=== PATIENT | male | born 1975 | race Hispanic/Latino ===

== ENCOUNTER 2019-04-02 12:11 | Inpatient (IN) | payer OTHER, SELFPAY ==
--- NOTE | ~2019-04-02 | CT_ITS ---
EXAMINATION: CT abdomen pelvis w con DATE: 04/06/2019 08:24 INDICATION: Diverticulitis with abscess. TECHNIQUE: Computed tomography (CT) of the abdomen and pelvis was performed with 100 mL Omnipaque 350 intravenous contrast. Automated exposure control and iterative reconstruction technique were employe d. The dose-length product was 232.68 mGy-cm. COMPARISON: CT abdomen and pelvis 04/02/2019 FINDINGS: The visualized portions of the lung bases demonstrate mild atelectasis. No pleural effusion . The heart size is normal. No pericardial effusion. The liver and spleen are normal. The gallbladder is normal in size. Gallbladder wall thickening is noted, likely from interstitial edema. The pancrea s, adrenal glands, and kidneys are normal. There are scattered diverticula in the colon. There is wal l thickening of the rectosigmoid. There is a fistula from the sigmoid colon to the wall of the bladde r. There is a 2.9 x 2.7 x 2.5 cm abscess involving the bladder wall that previously measured 2.2 x 2. 6 x 2.4 cm. There is a 2.4 x 2.4 x 1.7 cm abscess posterior superior to the bladder that previously m easured 2.0 x 1.6 x 1.4 cm. The appendix is normal. There is trace ascites. There are no pathological ly enlarged lymph nodes. There are benign bone islands in the proximal femora. IMPRESSION: 1. Sigmoid diverticulitis with fistula and slightly worsened abscess involving the bladder wall and s lightly worsened abscess posterior superior to the bladder. Reviewed, dictated and finalized at location B. TICK MOLDER IMPRESSION: 1. Sigmoid diverticulitis with fistula and slightly worsened abscess involving the bladder wall and slightly worsened abscess posterior superior to the bladde r.
--- NOTE | ~2019-04-02 | CT_ITS ---
EXAMINATION: CT abdomen pelvis w con DATE: 04/02/2019 14:14 INDICATION: Low abdominal pain. Diverticulitis. TECHNIQUE: Computed tomography (CT) of the abdomen and pelvis was performed with 100 mL Omnipaque 350 intravenous contrast. Automated exposure control and iterative reconstruction technique were employe d. The dose-length product was 217.04 mGy-cm. COMPARISON: CT abdomen and pelvis 02/16/2019 FINDINGS: The visualized portions of the lung bases demonstrate minimal atelectasis. No pleural effus ion. The heart size is normal. No pericardial effusion. The liver, gallbladder, spleen, pancreas, adr enal glands, and kidneys are normal. There are scattered diverticula in the colon. There is wall thic kening of the sigmoid colon. There is a fistula to the bladder wall, which is thickened, with a 2.2 x 2.6 x 2.4 cm abscess. There is a 2.0 x 1.6 x 1.4 cm abscess posterior to the bladder. There are no d ilated loops of bowel. The appendix is normal. There are no pathologically enlarged lymph nodes. Ther e is no free intraperitoneal fluid. There is mild lumbar spondylosis. IMPRESSION: 1. Sigmoid diverticulitis with fistula and abscess involving the bladder wall and small abscess poste rior to the bladder. Reviewed, dictated and finalized at location A. [employer] IMPRESSION: 1. Sigmoid diverticulitis with fistula and abscess involving the bladder wall a nd small abscess posterior to the bladder.
[2019-04-02 12:35] VITALS: BP 119/78; PULSE 73; RESP 16; TEMP 37; O2SAT 100
--- NOTE | 2019-04-02 13:11 | ED.GENADULT ---
HPI - General Adult General Chief complaint: Unspecified Stated complaint: ABD PAIN Time Seen by Provider: 04/02/19 13:07 Source: patient Mode of arrival: ambulatory Limitations: no limitations History of Present Illness HPI narrative: A 43 y/o male, with a hx of diverticulitis, presents to the ED with worsening lower ABD pain for the past 4 days. He states that he is scheduled to have a partial colon resection done by Dr. Hirsch on April 09. He reports associated dysuria, nausea, 1 episode of diarrhea, and that the pain radiates into his lower back. He notes that he had labs done 2 days ago and was contacted and told that he had an infection so he should come into the ED. He denies any blood in his stool, vomiting, fevers, chills, CP, or SOB. MD complaint: Lower ABD pain Onset (ago): day(s) (4) Location: abdomen (lower) Radiation: back (lower) Associated symptoms: nausea/vomiting (no vomiting) and other (dysuria and 1 episode of diarrhea) Related Data Home Medications Medication Instructions Recorded Confirmed clonazepam 1 mg tablet 1 mg PO BID 02/16/19 03/30/19 Allergies Allergy/AdvReac Type Severity Reaction Status Date / Time No Known Allergies Allergy Verified 04/02/19 12:43 Review of Systems Review of Systems: All systems reviewed & are unremarkable except as noted in HPI and below Constitutional: Constitutional: Denies chills and Denies fever(s) Cardiovascular: Cardiovascular: Denies chest pain Respiratory: Respiratory: Denies dyspnea Gastrointestinal: Gastrointestinal: Reports abdominal pain (lower), Denies melena, Reports diarrhea (1 episode), Reports nausea and Denies vomiting Genitourinary: Genitourinary: Reports dysuria [facility] Past Medical History Medical History (Updated 04/02/19 @ 17:16 by Melissa Samano MD) Depression Diverticulitis Surgical History Surgical History H/O colonoscopy 08/25/[address] Raines showing diverticulosis with no evidence of bleeding and grade II internal hemorrhoids. Family History Family History Other Tuberculosis Other Acute myocardial infarction Diabetes mellitus Social History Social History Social History: The patient lives at home with his and four children. He normally works for a [employer], but has recently been off work due to the recurrent episodes of diverticulitis. He has not worked for at least the past month. He has a history of smoking daily but reportedly quit about 2 days ago. Denies any alcohol or drug use. Alcohol intake: never Substance use: never Living arrangements: with family Occupation/Education: occupation Gender identity (if verbalized by the patient): Male Exam Const: General: cooperative, no acute distress and alert Nutritional Appearance: well nourished Orientation/consciousness: oriented x3 Limitations: no limitations HENMT: Mouth: Yes lip normal and Yes moist mucous membranes Resp: Effort & Inspection: normal respiratory effort Auscultation: clear to auscultation bilaterally Cardio: Rate: regular rate Rhythm: regular rhythm GI: GI Palp: Yes abdominal tenderness (diffuse lower - greatest in the RLQ) and Yes soft Auscultation: normal bowel sounds Skin: General skin exam: normal color Neuro: General: oriented x3 Cognition (Neuro): normal cognition Speech: normal speech Extrem: General: normal to inspection, full ROM and no clubbing, cyanosis or edema Psych: Mental Status: mental status grossly normal Affect: normal affect Attitude: cooperative Course Course Emergency Course: Patient with complicated history of recurrent diverticulitis who is scheduled for a partial colon resection. Now here again with recurrent diverticulitis and abscess involving the bladder now. Case discussed with general surgery who
[2019-04-02 13:41] LABS: Basophils Absolute Auto 0.1 K/mm3 (0.0-0.1); Basophils Percent Auto 0.4 % (0.2-1.2); Eosinophils Absolute Auto 0.3 K/mm3 (0-0.3); Eosinophils Percent Auto 1.9 % (0-4.4); Hematocrit 42.2 % (42.0-52.0); Hemoglobin 14.5 g/dL (14.0-18.0); Immature Granulocyte Absolute 0.08 K/mm3 (0.00-0.031); Immature Granulocyte Percent A 0.5 % (0-0.5); Lymphocytes Absolute Auto 2.31 K/mm3 (0.9-3.2); Lymphocytes Percent Auto 14.8 % (18.3-44.2); Mean Corpuscular HGB Conc 34.4 g/dl (32-36); Mean Corpuscular Hemoglobin 32.2 pg (26-34); Mean Corpuscular Volume 93.6 fl (80-100); Mean Platelet Volume 10.6 fl (7.4-10.4); Monocytes Absolute Auto 1.8 K/mm3 (0.1-0.6); Monocytes Percent Auto 11.6 % (2.6-8.5); Neutrophils Absolute Auto 11.1 K/mm3 (1.3-6.7); Neutrophils Percent Auto 70.8 % (45.5-73.1); Platelet Count Result 303 k/mm3 (150-375); Red Blood Count 4.51 M/mm3 (4.6-6.20); Red Cell Distribution Width 11.9 % (11.5-14.5); White Blood Count 15.6 K/mm3 (4.5-10.0)
[2019-04-02] MEDS: LACTATED RINGERS 1,000 ML 999 ML IV CONT (13:42)
[2019-04-02 13:49] LABS: Add Urine Microscopic? YES; Appearance Urine Clear (Clear); Bilirubin Urine Negative (Negative); Blood Urine Negative (Negative); Color Urine Straw (Yellow); Glucose Urine UA Negative (Negative); Ketones Urine Negative (Negative); Leukocyte Esterase Ur Negative LEU/UL (Negative); Mucus Urine Rare /lpf; Nitrate Urine Negative (Negative); Protein Urine Negative (Negative); Urobilinogen Urine Negative mg/dL (<2.0)
[2019-04-02 13:58] LABS: Alanine Aminotransferase 21 U/L (4-50); Albumin Level 4.6 g/dL (3.5-5.1); Alkaline Phosphatase 73 U/L (38-126); Aspartate Amino Transferase 14 U/L (17-59); Bilirubin,Total 1.2 mg/dL (0.2-1.3); Blood Urea Nitrogen 8 mg/dL (9-20); Calcium 9.4 mg/dL (8.4-10.2); Carbon Dioxide 30 mmol/L (22-30); Chloride 98 mmol/L (98-107); Estimated CRCL calculation 92 ml/min; Estimated Glomerular Filt Rate > 60; Glucose 89 mg/dL (75-110); Lipase 59 U/L (23-300); Potassium 4.3 mmol/L (3.4-5.0); Sodium 139 mmol/L (137-145)
[2019-04-02 14:08] LABS: RBC Urine 51-75 /hpf (0-2)
[2019-04-02 14:10] LABS: Specific Grav Ur 1.005 (1.001-1.035)
[2019-04-02 16:03] VITALS: BP 94/65; PULSE 58; RESP 16; O2SAT 99
--- NOTE | 2019-04-02 16:10 | PM.IMHP ---
H&P: HPI History of Present Illness Chief complaint: diverticular abscess Narrative: Phong Neff is a 43 year old male with a history of multiple episodes of diverticulitis. He is well known to our service for treating him for this on multiple occasions. The patient has had about 6-7 episodes of diverticulitis in the past year, with at least 2 requiring IV antibiotic treatment and hospitalization. The patient has been followed as an outpatient to schedule for a sigmoidectomy. He last had a colonoscopy on 08/25/2018 that showed evidence of diverticulosis without bleeding and internal hemorrhoids. The patient was last treated with 1 week of oral antibiotics as an outpatient for mild sigmoid diverticulitis on 02/16/2019. He then improved and had no problems until this past week. He reports that his abdominal pain started about 5 days ago. It was all lower abdominal pain that was also associated with dysuria. The patient was also scheduled for surgery on April 09, 2018 for elective sigmoid colectomy. He notified our office of the abdominal pain on 03/31/2019 and was sent for labs. His labs revealed white blood cell count of 15,400. he was called with these results and decided to present to the ED for further evaluation today due to his persistent abdominal pain. CT scan of the abdomen and pelvis in the emergency department revealed sigmoid diverticulitis with a 2.2 x 2.6 x 2.4 cm pericolonic abscess near the bladder with bladder wall thickening and suggestion of a colovesical fistula. There is anther 2.0 x 1.6 x 1.4 cm abscess posterior to the bladder. No free intraperitoneal air noted. Labs revealed [place] [id number]. Urinalysis showed WBC 4-6, negative leukocytes, negative nitrates, rare mucous, no mention of bacteria, and many RBC. Our service was contacted for the CT scan findings of sigmoid diverticulitis with pericolonic abscesses and possible colovesical fistula. The patient is now being seen in the emergency department. He reports he is still having some lower abdominal pain that is primarily suprapubic and left lower quadrant abdominal pain. He states recently he began to notice dysuria, but denies hematuria, pneumaturia, urgency, or frequency. He reports a subjective fever 2 times in the last 5 days. He stopped eating about 3 days ago but has been drinking large quantities of fluid. His bowels have been moving normally with his last bowel movement yesterday, but it was somewhat loose. No blood noted in his stool. Also reports associated fatigue over the past week. No other complaints at this time. Review of Systems Review of Systems: All systems reviewed & are unremarkable except as noted in HPI and below Constitutional: Constitutional: Reports as per HPI, Reports chills, Denies excessive sweating, Reports fatigue, Reports fever(s), Denies headache(s) and Denies weakness Eyes: Eyes: Denies change in vision and Denies eye pain ENT: Denies dysphagia, Denies dizziness, Denies dry mouth, Denies headache(s), Denies hearing loss and Denies mouth pain Cardiovascular: Cardiovascular: Denies chest pain, Denies pedal edema, Denies radiating jaw, neck or arm pain, Denies dyspnea and Denies dyspnea on exertion Respiratory: Respiratory: Denies cough, Denies dyspnea, Denies dyspnea on exertion and Denies wheezing Gastrointestinal: Gastrointestinal: Reports as per HPI, Reports no additional gastrointestinal complaints, Reports abdominal pain, Denies melena, Denies bloating, Denies hematochezia, Denies constipation, Denies dysphagia, Reports loose stools, Denies nausea and Denies vomiting Genitourinary: Genitourinary: Reports as per HPI, Denies hematuria, Reports dysuria and Denies urinary urgency Musculoskeletal: Musculoskeletal: Denies abnormal gait, Denies deformity, Denies joint swelling, Denies numbness and Denies tingling Integumentary/Breasts: Skin/Breast: Denies new lesions, Denies rash, Denies wounds and D
[2019-04-02 16:55] VITALS: BP 103/51; PULSE 53; RESP 16; TEMP 37; O2SAT 100; BMI 20.6
[2019-04-02] MEDS: IBUPROFEN IV 800 MG/200 ML 800 MG/200 ML BAG 400 MG IVPB ×2 (17:07→23:42)
[2019-04-02] MEDS: LACTATED RINGERS 1,000 ML 125 ML IV CONT (18:01)
--- NOTE | 2019-04-02 18:37 | ADMGEN ---
This patient, Phong Neff, was admitted to 2 Medical Room 242-01. Patient oriented to hospital policies and general routines including ID bracelet, bed and alarms, visiting hours, pain management, procedures, bathroom and other care routines, personal items, smoking policy, room service/diet, and visiting hours. Valuables list has been completed. Information on how to activate the Rapid Response Team has been discussed. Patient are encouraged to report perceived risks to care and to ask questions if they do not understand what they are told or what they should do.
--- NOTE | 2019-04-02 19:56 | PM.PNGS ---
Progress Note: A&P Assessment and Plan (1) Diverticulitis of large intestine with abscess: Code(s): K57.20 - Diverticulitis of large intestine with perforation and abscess without bleeding Status: Acute Assessment and Plan: Admit patient and start IV antibiotics, bowel rest analgesics and IV fluids. Hopefully this will resolve without surgery in the acute situation. Although CT scan does show evidence of a colovesical fistula, urinalysis is not really indicative of this. Will watch for signs of pneumaturia or fecaluria. Elective surgery will have to be rescheduled. Subjective Subjective Date/Time Seen: 04/02/19 19:56 Interval history: Patient is a 43-year-old man who has had previous episodes of acute diverticulitis. His diverticulitis has been quiescent and he is planned to have surgery in 1 week. However he was noted on preoperative lab [place] [id number]. He also has been having lower abdominal pain suggestive of recurrence of diverticulitis. He came to the emergency room and CT scan shows diverticulitis with probable colovesical fistula and a be an abscess posterior to the bladder. He has been admitted for IV antibiotics and further management. Review of Systems Review of Systems: All systems reviewed & are unremarkable except as noted in HPI and below Exam Const: General: comfortable and no acute distress; No confused Orientation/consciousness: oriented x3 and No confused Resp: Effort & Inspection: normal respiratory effort Auscultation: clear to auscultation bilaterally Cardio: Rate: regular rate Rhythm: regular rhythm GI: Inspection: normal to inspection and non-distended GI Palp: Yes firm, Yes tender (Across entire lower abdomen), Yes guarding (Both lower quadrant) and Yes rebound tenderness Auscultation: hypoactive bowel sounds Neuro: General: oriented x3, no focal motor deficits and No confused Extrem: General: no calf tenderness and no edema Psych: Affect: normal affect Insight: insight good Judgement: judgment good Objective Data Vital Signs Vital Signs: Vital Signs - 24 hr 04/02/19 12:35 04/02/19 16:03 04/02/19 16:55 Temperature 37.0 C 37.0 C Pulse Rate 73 58 L 53 L Respiratory Rate 16 16 16 Blood Pressure 119/78 94/65 L 103/51 L Pulse Oximetry 100 99 100 Intake/Output Intake/Output: Intake & Output 03/30/19 03/31/19 04/01/19 04/02/19 23:59 23:59 23:59 23:59 Intake Total 1350 Output Total 0 Balance 1350 Meds/Results Medications: Active Medications Generic Name Dose Route Start Last Admin Trade Name Freq PRN Reason Stop Dose Admin Acetaminophen 1,000 mg in 100 mls @ 400 mls/hr 04/02/19 15:49 Ofirmev 1,000 Mg Ivpb IVPB 04/03/19 15:50 Q6H PRN Mild Pain (1-3) or Fever Lactated Ringer's 1,000 mls @ 125 mls/hr 04/02/19 15:50 04/02/19 18:01 Lr - Lactated Ringers Iv IV CONT 125 mls/hr .Q8H KENDRA Administration Piperacillin/Tazobactam/Dextrose 3.375 gm in 50 mls @ 100 mls/hr 04/03/19 00:00 Zosyn 3.375 Gm/D5w 50ml Pm IVPB Q6HR KENDRA Ibuprofen 800 mg in 200 mls @ 400 mls/hr 04/02/19 18:00 04/02/19 18:02 Caldolor 800 Mg/200 Ml IVPB Infused Q6HR KENDRA Infusion Morphine Sulfate 2 mg 04/02/19 16:43 Morphine Sulfate Inj IV PUSH Q2H PRN Pain Rated 4-6 Morphine Sulfate 4 mg 04/02/19 16:43 Morphine Sulfate Inj IV PUSH Q2H PRN Pain Rated 7-10 Radiology Results: ITS Impressions Abdomen/Pelvis CT 04/02/19 14:15 IMPRESSION: 1. Sigmoid diverticulitis with fistula and abscess involving the bladder wall and small abscess posterior to the bladder. Labs Labs: Laboratory Results - last 24 hr 04/02/19 04/02/19 04/02/19 13:36 13:36 13:36 WBC 15.6 H RBC 4.51 L Hgb 14.5 Hct 42.2 MCV 93.6 MCH 32.2 MCHC 34.4 RDW 11.9 Plt Count 303 MPV 10.6 H Immature Gran % (Auto) 0.5 Neut % (Auto) 70.8 Lymph %
[2019-04-02] MEDS: MORPHINE SULFATE 2 MG/ML INJ IV PUSH (20:46)
[2019-04-02 22:00] VITALS: BP 110/57; PULSE 56; RESP 21; TEMP 36.7; O2SAT 100
[2019-04-03] MEDS: LACTATED RINGERS 1,000 ML 125 ML IV CONT (03:12)
[2019-04-03] MEDS: MORPHINE SULFATE 2 MG/ML INJ IV PUSH ×2 (03:17→15:19)
[2019-04-03 06:00] VITALS: BP 107/58; PULSE 77; RESP 21; TEMP 36.3; O2SAT 100
--- NOTE | 2019-04-03 06:05 | PM.PNGS ---
Progress Note: A&P Assessment and Plan (1) Diverticulitis of large intestine with abscess: Code(s): K57.20 - Diverticulitis of large intestine with perforation and abscess without bleeding Status: Acute Assessment and Plan: Some improvement after just a few hours of IV antibiotics and bowel rest. Continue present treatment. Recheck exam and labs again tomorrow. Labs from today are pending at this time. Subjective Subjective Date/Time Seen: 04/03/19 06:05 Patient reports: no new complaints and pain is less Review of Systems Review of Systems: All systems reviewed & are unremarkable except as noted in HPI and below Constitutional: Constitutional: Denies headache(s) ENT: Denies headache(s) Cardiovascular: Cardiovascular: Denies chest pain and Denies dyspnea Respiratory: Respiratory: Denies cough and Denies dyspnea Gastrointestinal: Gastrointestinal: Reports as per HPI and Reports abdominal pain Comments: Difficult to tell if patient has any pneumaturia. There is a language barrier. Neurologic: Denies confusion and Denies headache(s) Psychiatric: Psychiatric: Denies confusion Exam Const: General: comfortable and no acute distress; No confused Orientation/consciousness: oriented x3 and No confused Resp: Effort & Inspection: normal respiratory effort Auscultation: clear to auscultation bilaterally Cardio: Rate: regular rate Rhythm: regular rhythm GI: Inspection: normal to inspection and non-distended GI Palp: Yes soft, Yes tender ( Both lower quadrants.), Yes guarding, No hernia, No mass and Yes rebound tenderness Auscultation: normal bowel sounds Neuro: General: oriented x3, no focal motor deficits and No confused Extrem: General: no calf tenderness and no edema Psych: Affect: normal affect Insight: insight good Judgement: judgment good Objective Data Vital Signs Vital Signs: Vital Signs - 24 hr 04/02/19 12:35 04/02/19 16:03 04/02/19 16:55 Temperature 37.0 C 37.0 C Pulse Rate 73 58 L 53 L Respiratory Rate 16 16 16 Blood Pressure 119/78 94/65 L 103/51 L Pulse Oximetry 100 99 100 04/02/19 22:00 Temperature 36.7 C Pulse Rate 56 L Respiratory Rate 21 H Blood Pressure 110/57 L Pulse Oximetry 100 Intake/Output Intake/Output: Intake & Output 03/31/19 04/01/19 04/02/19 04/03/19 23:59 23:59 23:59 23:59 Intake Total 1350 1250 Output Total 0 Balance 1350 1250 Meds/Results Medications: Active Medications Generic Name Dose Route Start Last Admin Trade Name Freq PRN Reason Stop Dose Admin Acetaminophen 1,000 mg in 100 mls @ 400 mls/hr 04/02/19 15:49 Ofirmev 1,000 Mg Ivpb IVPB 04/03/19 15:50 Q6H PRN Mild Pain (1-3) or Fever Lactated Ringer's 1,000 mls @ 125 mls/hr 04/02/19 15:50 04/03/19 03:12 Lr - Lactated Ringers Iv IV CONT 125 mls/hr .Q8H KENDRA Administration Piperacillin/Tazobactam/Dextrose 3.375 gm in 50 mls @ 100 mls/hr 04/03/19 00:00 04/03/19 01:51 Zosyn 3.375 Gm/D5w 50ml Pm IVPB Infused Q6HR KENDRA Infusion Ibuprofen 800 mg in 200 mls @ 400 mls/hr 04/02/19 18:00 04/03/19 01:48 Caldolor 800 Mg/200 Ml IVPB Infused Q6HR KENDRA Infusion Morphine Sulfate 2 mg 04/02/19 16:43 04/03/19 03:17 Morphine Sulfate Inj IV PUSH 2 mg Q2H PRN Administration Pain Rated 4-6 Morphine Sulfate 4 mg 04/02/19 16:43 Morphine Sulfate Inj IV PUSH Q2H PRN Pain Rated 7-10 Radiology Results: ITS Impressions Abdomen/Pelvis CT 04/02/19 14:15 IMPRESSION: 1. Sigmoid diverticulitis with fistula and abscess involving the bladder wall and small abscess posterior to the bladder. Labs Labs: Laboratory Results - last 24 hr 04/02/19 04/02/19 04/02/19 13:36 13:36 13:36 WBC 15.6 H RBC 4.51 L Hgb 14.5 Hct 42.2 MCV 93.6 MCH 32.2 MCHC 34.4 RDW 11.9 Plt Count 303 MPV 10.6 H Immature Gran % (Auto) 0.5 Neut % (Auto) 70.8 Lymph % (Auto) 14.8 L
[2019-04-03] MEDS: IBUPROFEN IV 800 MG/200 ML 800 MG/200 ML BAG 400 MG IVPB (06:23)
[2019-04-03] MEDS: ENOXAPARIN 40 MG/0.4 ML SYRINGE SUB-Q (08:39)
[2019-04-03] MEDS: IBUPROFEN IV 800 MG/200 ML 800 MG/200 ML BAG 200 MG IVPB ×2 (11:48→17:48)
[2019-04-03] MEDS: LACTATED RINGERS 1,000 ML 100 ML IV CONT ×2 (11:49→21:59)
[2019-04-03 14:00] VITALS: BP 101/52; PULSE 54; RESP 15; TEMP 37.1; O2SAT 98
[2019-04-03 22:00] VITALS: BP 106/53; PULSE 63; RESP 18; TEMP 36.4; O2SAT 99
[2019-04-04] MEDS: IBUPROFEN IV 800 MG/200 ML 800 MG/200 ML BAG 200 MG IVPB ×5 (00:14→23:49)
[2019-04-04] MEDS: MORPHINE SULFATE 2 MG/ML INJ IV PUSH (00:24)
[2019-04-04 05:40] LABS: Hematocrit 35.5 % (42.0-52.0); Hemoglobin 12.2 g/dL (14.0-18.0); Mean Corpuscular HGB Conc 34.4 g/dl (32-36); Mean Corpuscular Hemoglobin 32.4 pg (26-34); Mean Corpuscular Volume 94.2 fl (80-100); Mean Platelet Volume 11.1 fl (7.4-10.4); Platelet Count Result 285 k/mm3 (150-375); Red Blood Count 3.77 M/mm3 (4.6-6.20); Red Cell Distribution Width 11.5 % (11.5-14.5)
[2019-04-04 05:52] LABS: Blood Urea Nitrogen 10 mg/dL (9-20); Calcium 8.5 mg/dL (8.4-10.2); Carbon Dioxide 26 mmol/L (22-30); Chloride 99 mmol/L (98-107); Estimated CRCL calculation 104 ml/min; Estimated Glomerular Filt Rate > 60; Glucose 78 mg/dL (75-110); Potassium 3.6 mmol/L (3.4-5.0); Sodium 137 mmol/L (137-145)
[2019-04-04 06:00] VITALS: BP 111/62; PULSE 60; RESP 16; TEMP 36.3; O2SAT 98
[2019-04-04] MEDS: ENOXAPARIN 40 MG/0.4 ML SYRINGE SUB-Q (08:32)
[2019-04-04] MEDS: LACTATED RINGERS 1,000 ML 100 ML IV CONT (12:04)
[2019-04-04 14:00] VITALS: BP 98/54; PULSE 68; RESP 14; TEMP 36.4; O2SAT 100
--- NOTE | 2019-04-04 19:19 | PM.PNGS ---
Progress Note: A&P Assessment and Plan (1) Diverticulitis of large intestine with abscess: Qualifiers: Diverticulitis bleeding: without bleeding Qualified Code(s): K57.20 - Diverticulitis of large intestine with perforation and abscess without bleeding Code(s): K57.20 - Diverticulitis of large intestine with perforation and abscess without bleeding Status: Acute Assessment and Plan: white count slightly up today. Will repeat in a.m. tomorrow. Electrolytes normal. Patient seems to be improving. Will increase diet to clear liquids and see how he tolerates it. Continue IV antibiotics. Subjective Subjective Date/Time Seen: 04/04/19 13:19 patient states that he is feeling better. Does not have as much lower abdominal pain as when he came back to the hospital. States he has had several loose stools the last 24 hours. States he is not hungry but would be willing to drink. Nurse reports he has not been letting them know when he has stools if he has had them. Review of Systems Constitutional: Constitutional: Reports no additional constitutional complaints ENT: Reports other (Mucous Membranes moist.) Cardiovascular: Cardiovascular: Denies dyspnea Respiratory: Respiratory: Denies pain on inspiration and Denies dyspnea Gastrointestinal: Gastrointestinal: Reports as per HPI and Reports abdominal pain ( Mild in the suprapubic area and left lower quadrant.) Musculoskeletal: Musculoskeletal: Reports other (No calf swelling or edema) Integumentary/Breasts: Skin/Breast: Reports system reviewed and no additional complaints, except as docu Exam Const: General: comfortable and no acute distress; No confused Orientation/consciousness: oriented x3 and No confused Resp: Effort & Inspection: normal respiratory effort Auscultation: clear to auscultation bilaterally Cardio: Rate: regular rate Rhythm: regular rhythm GI: Inspection: normal to inspection and non-distended GI Palp: Yes soft, Yes tender ( Mild in suprapubic area and left lower quadrant.), No hernia and No mass Auscultation: normal bowel sounds Neuro: General: oriented x3, no focal motor deficits and No confused Extrem: General: no calf tenderness and no edema Psych: Affect: normal affect Insight: insight good Judgement: judgment good Objective Data Vital Signs Vital Signs: Vital Signs - 24 hr 04/03/19 22:00 04/04/19 06:00 04/04/19 14:00 Temperature 36.4 C L 36.3 C L 36.4 C Pulse Rate 63 60 68 Respiratory Rate 18 16 14 Blood Pressure 106/53 L 111/62 98/54 L Pulse Oximetry 99 98 100 Intake/Output Intake/Output: Intake & Output 04/01/19 04/02/19 04/03/19 04/04/19 23:59 23:59 23:59 23:59 Intake Total 1350 4000 2850 Output Total 0 4 700 Balance 1350 3996 2150 Meds/Results Medications: Active Medications Generic Name Dose Route Start Last Admin Trade Name Freq PRN Reason Stop Dose Admin Hydrocodone Bitart/Acetaminophen 1 tab 04/04/19 19:17 [place] 5-325 Mg PO Q6H PRN Pain Rated 4-6 Enoxaparin Sodium 40 mg 04/03/19 09:00 04/04/19 08:32 Lovenox SUB-Q 40 mg DAILY KENDRA Administration Lactated Ringer's 1,000 mls @ 100 mls/hr 04/02/19 15:50 04/04/19 17:52 Lr - Lactated Ringers Iv IV CONT 100 mls/hr .Q10H KENDRA Infusion Piperacillin/Tazobactam/Dextrose 3.375 gm in 50 mls @ 100 mls/hr 04/03/19 00:00 04/04/19 18:27 Zosyn 3.375 Gm/D5w 50ml Pm IVPB Infused Q6HR KENDRA Infusion Ibuprofen 800 mg in 200 mls @ 400 mls/hr 04/02/19 18:00 04/04/19 18:29 Caldolor 800 Mg/200 Ml IVPB 200 mls/hr Q6HR KENDRA Administration Morphine Sulfate 2 mg 04/02/19 16:43 04/04/19 00:24 Morphine Sulfate Inj IV PUSH 2 mg Q2H PRN Administration Pain Rated 4-6 Morphine Sulfate 4 mg 04/02/19 16:43 Morphine Sulfate Inj IV PUSH Q2H PRN Pain Rated 7-10 Radiology Results: ITS Impressions Abdomen/Pelvis CT 04/02/19 14:15 IMPRESSION: 1. Sigmoid
[2019-04-04 22:00] VITALS: BP 110/56; PULSE 64; RESP 18; TEMP 36.6; O2SAT 99
[2019-04-05] MEDS: LACTATED RINGERS 1,000 ML 100 ML IV CONT ×2 (00:30→12:30)
[2019-04-05] MEDS: IBUPROFEN IV 800 MG/200 ML 800 MG/200 ML BAG 200 MG IVPB ×3 (05:16→17:08)
[2019-04-05 06:00] VITALS: BP 117/67; PULSE 53; RESP 18; TEMP 36.3; O2SAT 97
[2019-04-05 06:02] LABS: Basophils Absolute Auto 0.1 K/mm3 (0.0-0.1); Basophils Percent Auto 0.4 % (0.2-1.2); Eosinophils Absolute Auto 0.4 K/mm3 (0-0.3); Eosinophils Percent Auto 3.1 % (0-4.4); Hematocrit 32.1 % (42.0-52.0); Hemoglobin 11.1 g/dL (14.0-18.0); Immature Granulocyte Absolute 0.08 K/mm3 (0.00-0.031); Immature Granulocyte Percent A 0.6 % (0-0.5); Lymphocytes Absolute Auto 2.61 K/mm3 (0.9-3.2); Lymphocytes Percent Auto 19.3 % (18.3-44.2); Mean Corpuscular HGB Conc 34.6 g/dl (32-36); Mean Corpuscular Hemoglobin 32.3 pg (26-34); Mean Corpuscular Volume 93.3 fl (80-100); Monocytes Percent Auto 14.5 % (2.6-8.5); Neutrophils Absolute Auto 8.4 K/mm3 (1.3-6.7); Neutrophils Percent Auto 62.1 % (45.5-73.1); Platelet Count Result 279 k/mm3 (150-375); Red Blood Count 3.44 M/mm3 (4.6-6.20); Red Cell Distribution Width 11.7 % (11.5-14.5); White Blood Count 13.5 K/mm3 (4.5-10.0)
[2019-04-05] MEDS: ENOXAPARIN 40 MG/0.4 ML SYRINGE SUB-Q (08:41)
[2019-04-05 14:00] VITALS: BP 97/55; PULSE 65; RESP 14; TEMP 37; O2SAT 100
--- NOTE | 2019-04-05 19:37 | PM.PNGS ---
Progress Note: A&P Assessment and Plan (1) Diverticulitis of large intestine with abscess: Onset Date: ~03/2019 Qualifiers: Diverticulitis bleeding: without bleeding Qualified Code(s): K57.20 - Diverticulitis of large intestine with perforation and abscess without bleeding Code(s): K57.20 - Diverticulitis of large intestine with perforation and abscess without bleeding Status: Acute Assessment and Plan: patient seems to be improving. At this time he is noticing no specific burning with urination. Continue antibiotics Advance diet to fulls. Since patient thought perhaps Dr. Hirsch would want to do a CT scan again on Saturday he will hold off on eating breakfast very early. Patient and Dr. Hirsch to make further plans the morning paste on his progress. Subjective Subjective Date/Time Seen: 04/05/19 16:37 Patient lying in bed. States his pain is almost gone. Nurse reports she only gave him 1 pain pill today. He states he has had several loose stools today. Tolerating clear liquids well. Review of Systems Constitutional: Constitutional: Reports no additional constitutional complaints ENT: Reports other (Mucous Membranes moist.) Cardiovascular: Cardiovascular: Denies dyspnea Respiratory: Respiratory: Denies pain on inspiration and Denies dyspnea Gastrointestinal: Gastrointestinal: Reports as per HPI and Reports abdominal pain ( Mild in the suprapubic area and left lower quadrant.) Musculoskeletal: Musculoskeletal: Reports other (No calf swelling or edema) Integumentary/Breasts: Skin/Breast: Reports system reviewed and no additional complaints, except as docu Exam Const: General: comfortable and no acute distress; No confused Orientation/consciousness: oriented x3 and No confused Resp: Effort & Inspection: normal respiratory effort Auscultation: clear to auscultation bilaterally Cardio: Rate: regular rate Rhythm: regular rhythm GI: Inspection: normal to inspection and non-distended GI Palp: Yes soft, Yes tender ( Minimal with palpation in suprapubic area.), No hernia and No mass Auscultation: normal bowel sounds Neuro: General: oriented x3, no focal motor deficits and No confused Extrem: General: no calf tenderness and no edema Psych: Affect: normal affect Insight: insight good Judgement: judgment good Objective Data Vital Signs Vital Signs: Vital Signs - 24 hr 04/04/19 22:00 04/05/19 06:00 04/05/19 14:00 Temperature 36.6 C 36.3 C L 37.0 C Pulse Rate 64 53 L 65 Respiratory Rate 18 18 14 Blood Pressure 110/56 L 117/67 97/55 L Pulse Oximetry 99 97 100 Intake/Output Intake/Output: Intake & Output 04/02/19 04/03/19 04/04/19 04/05/19 23:59 23:59 23:59 23:59 Intake Total 1350 4000 3050 5027 Output Total 0 4 700 450 Balance 1350 3996 2350 4577 Meds/Results Medications: Active Medications Generic Name Dose Route Start Last Admin Trade Name Freq PRN Reason Stop Dose Admin Hydrocodone Bitart/Acetaminophen 1 tab 04/04/19 19:17 [place] 5-325 Mg PO Q6H PRN Pain Rated 4-6 Enoxaparin Sodium 40 mg 04/03/19 09:00 04/05/19 08:41 Lovenox SUB-Q 40 mg DAILY KENDRA Administration Lactated Ringer's 1,000 mls @ 50 mls/hr 04/02/19 15:50 04/05/19 12:30 Lr - Lactated Ringers Iv IV CONT 100 mls/hr .Q20H KENDRA Administration Piperacillin/Tazobactam/Dextrose 3.375 gm in 50 mls @ 100 mls/hr 04/03/19 00:00 04/05/19 19:06 Zosyn 3.375 Gm/D5w 50ml Pm IVPB Infused Q6HR KENDRA Infusion Ibuprofen 800 mg in 200 mls @ 400 mls/hr 04/02/19 18:00 04/05/19 19:06 Caldolor 800 Mg/200 Ml IVPB Infused Q6HR KENDRA Infusion Morphine Sulfate 4 mg 04/02/19 16:43 Morphine Sulfate Inj IV PUSH Q2H PRN Pain Rated 7-10 Radiology Results: ITS Impressions Abdomen/Pelvis CT 04/02/19 14:15 IMPRESSION: 1. Sigmoid diverticulitis with fistula and abscess involving the bladder wall and small abscess posterior to the bladder.
[2019-04-05 22:00] VITALS: BP 101/53; PULSE 55; RESP 14; TEMP 36.5; O2SAT 98
[2019-04-06] MEDS: LACTATED RINGERS 1,000 ML 50 ML IV CONT (00:21)
[2019-04-06] MEDS: IBUPROFEN IV 800 MG/200 ML 800 MG/200 ML BAG 200 MG IVPB ×3 (00:28→11:30)
[2019-04-06 06:00] VITALS: BP 111/63; PULSE 61; RESP 14; TEMP 36.3; O2SAT 98
[2019-04-06 06:39] LABS: Basophils Percent Auto 0.2 % (0.2-1.2); Eosinophils Absolute Auto 0.6 K/mm3 (0-0.3); Hematocrit 31.3 % (42.0-52.0); Hemoglobin 10.7 g/dL (14.0-18.0); Immature Granulocyte Absolute 0.06 K/mm3 (0.00-0.031); Immature Granulocyte Percent A 0.4 % (0-0.5); Lymphocytes Absolute Auto 2.69 K/mm3 (0.9-3.2); Lymphocytes Percent Auto 19.7 % (18.3-44.2); Mean Corpuscular HGB Conc 34.2 g/dl (32-36); Mean Corpuscular Hemoglobin 31.8 pg (26-34); Mean Corpuscular Volume 93.2 fl (80-100); Mean Platelet Volume 10.5 fl (7.4-10.4); Monocytes Absolute Auto 1.8 K/mm3 (0.1-0.6); Monocytes Percent Auto 13.3 % (2.6-8.5); Neutrophils Absolute Auto 8.5 K/mm3 (1.3-6.7); Neutrophils Percent Auto 62.4 % (45.5-73.1); Platelet Count Result 276 k/mm3 (150-375); Red Blood Count 3.36 M/mm3 (4.6-6.20); Red Cell Distribution Width 11.8 % (11.5-14.5); White Blood Count 13.7 K/mm3 (4.5-10.0)
--- NOTE | 2019-04-06 07:21 | PM.PNGS ---
Progress Note: A&P Assessment and Plan (1) Diverticulitis of large intestine with abscess: Onset Date: ~03/2019 Qualifiers: Diverticulitis bleeding: without bleeding Qualified Code(s): K57.20 - Diverticulitis of large intestine with perforation and abscess without bleeding Code(s): K57.20 - Diverticulitis of large intestine with perforation and abscess without bleeding Status: Acute Assessment and Plan: Definitely improving although white blood cell count is slow to decline. I will repeat his CT scan of the abdomen and pelvis this morning. If either abscess looks bigger, possibly percutaneous drainage may help. Continue IV antibiotics. Making progress. Subjective Subjective Date/Time Seen: 04/06/19 07:21 Patient reports: feels better and pain is less Review of Systems Review of Systems: All systems reviewed & are unremarkable except as noted in HPI and below Constitutional: Constitutional: Denies headache(s) ENT: Denies headache(s) Cardiovascular: Cardiovascular: Denies chest pain and Denies dyspnea Respiratory: Respiratory: Denies cough and Denies dyspnea Gastrointestinal: Gastrointestinal: Reports as per HPI Neurologic: Denies confusion and Denies headache(s) Psychiatric: Psychiatric: Denies confusion Exam Const: General: comfortable and no acute distress; No confused Orientation/consciousness: oriented x3 and No confused Resp: Effort & Inspection: normal respiratory effort Auscultation: clear to auscultation bilaterally Cardio: Rate: regular rate Rhythm: regular rhythm GI: Inspection: normal to inspection and non-distended GI Palp: Yes soft, Yes tender ( Both lower quadrants left greater than right. Much less than before.), No guarding, No hernia, No mass and No rebound tenderness Auscultation: normal bowel sounds Neuro: General: oriented x3, no focal motor deficits and No confused Extrem: General: no calf tenderness and no edema Psych: Affect: normal affect Insight: insight good Judgement: judgment good Objective Data Vital Signs Vital Signs: Vital Signs - 24 hr 04/05/19 14:00 04/05/19 22:00 04/06/19 06:00 Temperature 37.0 C 36.5 C 36.3 C L Pulse Rate 65 55 L 61 Respiratory Rate 14 14 14 Blood Pressure 97/55 L 101/53 L 111/63 Pulse Oximetry 100 98 98 Intake/Output Intake/Output: Intake & Output 04/03/19 04/04/19 04/05/1919 23:59 23:59 23:59 23:59 Intake Total 4000 3050 6027 350 Output Total 4 700 450 Balance 3996 2350 5577 350 Meds/Results Medications: Active Medications Generic Name Dose Route Start Last Admin Trade Name Freq PRN Reason Stop Dose Admin Hydrocodone Bitart/Acetaminophen 1 tab 04/04/19 19:17 [place] 5-325 Mg PO Q6H PRN Pain Rated 4-6 Enoxaparin Sodium 40 mg 04/03/19 09:00 04/05/19 08:41 Lovenox SUB-Q 40 mg DAILY KENDRA Administration Lactated Ringer's 1,000 mls @ 50 mls/hr 04/02/19 15:50 04/06/19 06:13 Lr - Lactated Ringers Iv IV CONT 50 mls/hr .Q20H KENDRA Infusion Piperacillin/Tazobactam/Dextrose 3.375 gm in 50 mls @ 100 mls/hr 04/03/19 00:00 04/06/19 06:13 Zosyn 3.375 Gm/D5w 50ml Pm IVPB 100 mls/hr Q6HR KENDRA Administration Ibuprofen 800 mg in 200 mls @ 400 mls/hr 04/02/19 18:00 04/06/19 05:41 Caldolor 800 Mg/200 Ml IVPB 200 mls/hr Q6HR KENDRA Administration Morphine Sulfate 4 mg 04/02/19 16:43 Morphine Sulfate Inj IV PUSH Q2H PRN Pain Rated 7-10 Radiology Results: ITS Impressions Abdomen/Pelvis CT 04/02/19 14:15 IMPRESSION: 1. Sigmoid diverticulitis with fistula and abscess involving the bladder wall and small abscess posterior to the bladder. Labs Labs: Laboratory Results - last 24 hr 04/06/19 06:27 WBC 13.7 H RBC 3.36 L Hgb 10.7 L Hct 31.3 L MCV 93.2 MCH 31.8 MCHC 34.2 RDW 11.8 Plt Count 276 MPV 10.5 H Immature Gran % (Auto) 0.4 Neut % (Auto) 62.4 Lymph % (Auto) 19.7 [place] %
[2019-04-06] MEDS: ENOXAPARIN 40 MG/0.4 ML SYRINGE SUB-Q (08:49)
[2019-04-06 14:00] VITALS: BP 119/70; PULSE 53; RESP 14; TEMP 36.4; O2SAT 100
[2019-04-06] MEDS: LACTATED RINGERS 1,000 ML 80 ML IV CONT (16:41)
[2019-04-06] MEDS: IBUPROFEN IV 800 MG/200 ML 800 MG/200 ML BAG 250 MG IVPB ×2 (17:29→23:16)
[2019-04-06 21:43] VITALS: BP 90/48; PULSE 55; RESP 18; TEMP 36.6; O2SAT 96
[2019-04-07] VITALS (13 sets, daily range): BP systolic 106–135; BP diastolic 51–79; PULSE 51–76; RESP 12–18; TEMP 36.2–36.8; O2SAT 98–100; BMI 20.6
[2019-04-07] MEDS: IBUPROFEN IV 800 MG/200 ML 800 MG/200 ML BAG 400 MG IVPB (05:49)
--- NOTE | 2019-04-07 06:31 | PC.NURSE ---
PT TO OR PER BED
--- NOTE | 2019-04-07 06:56 | WPDANESEPPF ---
Anes - Initial Pre Proc Eval Procedure: Operation Date: 04/07/19 07:30 Proposed Procedures p Open Sigmoidectomy, Possible Colostomy, Closure Colovesical Fistula - Mir Hirsch MD Date/Time: 04/07/19 06:56 Surgeon: Mir Hirsch MD Pre Op Diagnosis: diverticular abscess Patient Data Age: 43 Gender: M Height: 5 ft 8 in Weight: 61.6 kg Last Vital Signs Temp 36.4 C L 04/07/19 06:31 Pulse 51 L 04/07/19 06:31 Resp 18 04/07/19 06:31 BP 124/74 04/07/19 06:31 Pulse Ox 99 04/07/19 05:18 Allergies Allergy/AdvReac Type Severity Reaction Status Date / Time No Known Allergies Allergy Verified 04/02/19 12:43 Home Medications Medication Instructions Recorded Confirmed Type clonazepam 1 mg tablet 1 mg PO BID 02/16/19 03/30/19 History Laboratory Tests 04/06/19 04/06/19 14:54 14:54 Carcinoembryonic Ag 1.0 ng/mL ng/mL (0.0-3.0) Blood Type A Positive Antibody Screen Negative Patient hx anesthesia problems: none Family hx anesthesia problems: none PMFSH Past Medical History Medical History Depression Diverticulitis Surgical History Surgical History H/O colonoscopy 08/25/[address] Raines showing diverticulosis with no evidence of bleeding and grade II internal hemorrhoids. Family History Family History Other Tuberculosis Other Acute myocardial infarction Diabetes mellitus Social History Social History Social History: The patient lives at home with his and four children. He normally works for a [employer], but has recently been off work due to the recurrent episodes of diverticulitis. He has not worked for at least the past month. He has a history of smoking daily but reportedly quit about 2 days ago. Denies any alcohol or drug use. Years smoked: 19 Smoking status: Former smoker Smoking end date: 03/31/19 Alcohol intake: former Substance use: never Substance use type: does not use Living arrangements: with family Occupation/Education: occupation Gender identity (if verbalized by the patient): Male Spiritual care concerns: No Agree to blood products: Yes Anes - Eval Final PreProcedure Day of Procedure 04/07/19 06:56 Patient weight: normal Heart: regular rate and rhythm Lungs: decreased breath sounds Airway: Mallampati scale class III Neurological: alert and oriented Last oral intake: >/= 8 hours ASA classification: III Emergent: no Anesthetic plan: proceed Anesthesia type and monitoring: general ETT and standard monitoring Informed Consent: The patient's anesthetic plan and its attendant risks and benefits were discussed with the patient/family/POA. Questions were solicited and answers provided to the satisfaction of the patient/family/POA.
[2019-04-07] MEDS: LACTATED RINGERS 1,000 ML 30 ML IV CONT ×2 (07:20→10:19)
[2019-04-07] MEDS: ceFAZolin 2 GM/D5W 50 ML 2 GM/50 ML BAG IVPB ×2 (07:28)
--- NOTE | 2019-04-07 08:46 | SUR.OPER ---
Rectal washout was performed per Dr. Lee instructions.
--- NOTE | 2019-04-07 09:39 | SUR.OPER ---
Dr. Hirsch filled the bladder with 450cc of Normal Saline via Luer Lock syringe and wang catheter to make sure there was not a leak. The normal saline injected was then emptied out into wang bag.
--- NOTE | 2019-04-07 10:12 | PCWOUND ---
Received referral to [facility] both sides of abdomen for possible ostomy placement. Patient already in the OR when [facility] arrived to [facility]. Will follow after surgery for ostomy needs and education.
--- NOTE | 2019-04-07 10:40 | PM.PROC ---
Procedure Note - Detailed Date of procedure: 04/07/19 Pre-op diagnosis: diverticular abscess Acute diverticulitis with pelvic abscess and colovesical fistula Post-op diagnosis: other (Acute diverticulitis with pelvic abscess) Procedure performed: Sigmoid colon resection with colorectal anastomosis, drainage pelvic abscess. Description of procedure: The patient was taken to surgery and induced into general anesthesia. He was placed in lithotomy in Sergio stirrups. Rectal irrigation and rectal tube was placed. Tellez catheter was placed. Prep and drape was carried out. Lower abdominal midline incision was made and dissection was carried down through the midline fascia into the peritoneal cavity. The peritoneal opening was extended the length of the wound. The sigmoid inflammatory mass was stuck to the left anterior pelvic wall. It overlie the left side of the urinary bladder. I exposed this area, and then started some blunt dissection to free this portion of the sigmoid colon from the pelvic wall. I found 1 abscess that was more anterior. It had quite a bit of purulent fluid which I suctioned away. I continued the dissection going to the right side and posteriorly. I also took down some of the adhesions that were in the more proximal sigmoid. I found a 2nd abscess that was very close to the 1st but located more posterior. It was farther from the urinary bladder. Both these abscesses were drained and any loculations broken. Neither appeared to be draining any urine. They both were oozing and I went ahead and packed each with 1 in iodoform Nu Gauze. This provided some hemostasis while I continued the operation. I located the left ureter just above the pelvic brim. I mobilized the mid to distal descending colon from its lateral peritoneal attachments. This dissection was carried down to the pelvic inflammatory mass. I continued and mobilize the sigmoid colon and the associated inflammatory mass completely from the pelvic sidewall so that it was mobile on its mesentery and still in continuity with the rectum and descending colon. I looked again for any signs of fistula from the urinary bladder. None was seen. I then chose a spot in the distal descending colon for my proximal line of resection. The mesentery to this portion of the distal descending colon was divided with the Harmonic scalpel. I also found a similar location in the upper rectum for the distal line of resection. I scored the mesentery over the pelvic brim to this area of the rectal mesentery. I then divided the rectal mesentery up to the area of my anticipated distal resection. Superior rectal vessels were divided with the Harmonic scalpel. Other rectal and distal colonic vessels were likewise divided with the Harmonic scalpel. There was very minimal bleeding. Eventually the mesentery was freed. I then used a TLC 75 stapler and divided the distal descending colon. I reloaded the TLC 75 and divided the upper rectum. This allowed me to pass the specimen off to pathology labeled sigmoid colon with diverticulitis. I then inspected the pelvis and used the cautery to achieve good hemostasis. I mobilized a bit more of the descending colon. It lay without any significant tension in proximity to the upper rectum. I freed some fatty tissue from both the distal descending colon and the upper rectal lines of resection. Placing these 2 ends of bowel in proximity, I went ahead with a hand-sewn end-to-end 2 layer anastomosis. The posterior outer layer of interrupted 4 0 silk Lembert sutures were placed. I then removed each staple line using the cautery. The posterior inner layer of bidirectional running 4 0 chromic suture was then placed. Nanci sutures were used for the anterior inner layer. The chromic suture was then tied to itself. I completed the anastomosis with an anterior outer layer of interrupted 4 0 silk Lembert sutures. I checked the anastomosis and it appeared to
--- NOTE | 2019-04-07 11:45 | PC.NURSE ---
Returned from OR per bed. IV intact.
[2019-04-07] MEDS: MORPHINE SULFATE 2 MG/ML INJ IV PUSH ×2 (11:56→15:46)
[2019-04-07] MEDS: ENOXAPARIN 40 MG/0.4 ML SYRINGE SUB-Q (12:04)
[2019-04-07] MEDS: LACTATED RINGERS 1,000 ML 100 ML IV CONT ×2 (12:05→15:46)
[2019-04-07] MEDS: IBUPROFEN IV 800 MG/200 ML 800 MG/200 ML BAG 200 MG IVPB ×3 (12:46→23:33)
--- NOTE | 2019-04-07 13:32 | PCDIET ---
Nutrition Assessment Complete due to prolonged NPO/clear/full status Inadequate oral intake R/T altered GI fx as evidence by day six with npo/clear/full liquid diet and minimal PO intake Goal: Diet advancement with PO intake at 50% or greater Pt current nutrition is clear liquid Nutrition recommendation: Agree for now; ADAT to low fiber Last recorded weight is 61.6 kg. Additional Notes: Due to recurrent diverticulitis, recommend checking Vitamin D levels due to correlation between low Vit D and chronic diverticulitis. will f/u to provide education and monitor PO intake, diet, vit d levels in three days.
[2019-04-07] MEDS: FAMOTIDINE 20 MG/2 ML VIAL IV PUSH (21:11)
[2019-04-08 02:00] VITALS: BP 97/56; PULSE 58; RESP 18; TEMP 36.6; O2SAT 96
[2019-04-08] MEDS: LACTATED RINGERS 1,000 ML 100 ML IV CONT ×2 (05:19→17:26)
[2019-04-08] MEDS: IBUPROFEN IV 800 MG/200 ML 800 MG/200 ML BAG 200 MG IVPB ×3 (05:20→17:24)
[2019-04-08 05:56] LABS: Basophils Percent Auto 0.2 % (0.2-1.2); Eosinophils Absolute Auto 0.1 K/mm3 (0-0.3); Eosinophils Percent Auto 0.5 % (0-4.4); Hematocrit 29.1 % (42.0-52.0); Hemoglobin 9.9 g/dL (14.0-18.0); Immature Granulocyte Absolute 0.07 K/mm3 (0.00-0.031); Immature Granulocyte Percent A 0.5 % (0-0.5); Lymphocytes Absolute Auto 2.42 K/mm3 (0.9-3.2); Lymphocytes Percent Auto 15.8 % (18.3-44.2); Mean Corpuscular Hemoglobin 31.9 pg (26-34); Mean Corpuscular Volume 93.9 fl (80-100); Monocytes Absolute Auto 1.8 K/mm3 (0.1-0.6); Monocytes Percent Auto 11.9 % (2.6-8.5); Neutrophils Absolute Auto 10.9 K/mm3 (1.3-6.7); Neutrophils Percent Auto 71.1 % (45.5-73.1); Platelet Count Result 280 k/mm3 (150-375); Red Cell Distribution Width 11.9 % (11.5-14.5); White Blood Count 15.3 K/mm3 (4.5-10.0)
[2019-04-08 06:00] VITALS: BP 106/59; PULSE 66; RESP 16; TEMP 36.5; O2SAT 98
[2019-04-08 06:16] LABS: Blood Urea Nitrogen 4 mg/dL (9-20); Calcium 7.9 mg/dL (8.4-10.2); Carbon Dioxide 31 mmol/L (22-30); Chloride 102 mmol/L (98-107); Estimated CRCL calculation 104 ml/min; Estimated Glomerular Filt Rate > 60; Glucose 83 mg/dL (75-110); Potassium 3.7 mmol/L (3.4-5.0); Sodium 140 mmol/L (137-145)
--- NOTE | 2019-04-08 07:00 | WPDANESPN ---
Anes - Prog Note Post-Op Date/Time: 04/08/19 07:00 Cardiovascular status: normal Respiratory status: normal Airway patency: baseline Mental status: baseline Post-Op hydration status: normal Vital Signs: Last Vital Signs Temp 36.5 C 04/08/19 06:00 Pulse 66 04/08/19 06:00 Resp 16 04/08/19 06:00 BP 106/59 L 04/08/19 06:00 Pulse Ox 98 04/08/19 06:00 I/O: Intake & Output 04/07/19 04/07/19 04/08/19 15:59 23:59 07:59 Intake Total 1166 1475 1665 Output Total 180 1030 1160 Balance 986 445 505 Laboratory Tests 04/08/19 05:05 04/08/19 05:05 04/08/19 04/08/19 05:05 05:05 WBC 15.3 H RBC 3.10 L Hgb 9.9 L Hct 29.1 L MCV 93.9 MCH 31.9 MCHC 34.0 RDW 11.9 Plt Count 280 MPV 11.0 H Immature Gran % (Auto) 0.5 Neut % (Auto) 71.1 Lymph % (Auto) 15.8 L [place] % (Auto) 11.9 H Eos % (Auto) 0.5 Baso % (Auto) 0.2 Lymph # (Auto) 2.42 [place] # (Auto) 1.8 H Eos # (Auto) 0.1 Baso # (Auto) 0.0 Abs Immat Gran (auto) 0.07 H Absolute Neuts (auto) 10.9 H Absolute Nucleated RBC 0.0 Nucleated RBC % 0.0 Sodium 140 Potassium 3.7 Chloride 102 Carbon Dioxide 31 H BUN 4 L D Creatinine 0.70 Estim Creat Clear Calc 104 Estimated GFR > 60 Glucose 83 Calcium 7.9 L Patient Feedback: Patient satisfied with anesthetic care.
[2019-04-08] MEDS: ENOXAPARIN 40 MG/0.4 ML SYRINGE SUB-Q (07:50)
[2019-04-08] MEDS: CLONAZEPAM 0.5 MG TAB 1 MG PO (07:50)
[2019-04-08] MEDS: FAMOTIDINE 20 MG/2 ML VIAL IV PUSH ×2 (07:50→20:15)
[2019-04-08 14:52] VITALS: BP 116/62; PULSE 62; RESP 20; TEMP 36.6; O2SAT 99
--- NOTE | 2019-04-08 18:45 | PM.PNGS ---
Progress Note: A&P Assessment and Plan (1) Diverticulitis of large intestine with abscess: Onset Date: ~03/2019 Qualifiers: Diverticulitis bleeding: without bleeding Qualified Code(s): K57.20 - Diverticulitis of large intestine with perforation and abscess without bleeding Code(s): K57.20 - Diverticulitis of large intestine with perforation and abscess without bleeding Status: Acute Assessment and Plan: Doing well postop day 1. Tolerating diet well. Will increased to full liquids for breakfast. Encouraged ambulation and IS. Additional Plan Continue antibiotics and Tellez for now. Subjective Subjective Date/Time Seen: 04/08/19 18:45 Post Op day: 1 Patient reports: flatus, bowel movement (X2) and blood in stool ( A small amount of bright red in the 1st bowel movement.) Interval history: Patient is sitting up tolerating clear liquid diet when I entered the room. Denies any nausea. Pain is well controlled. Review of Systems Constitutional: Constitutional: Reports no additional constitutional complaints ENT: Reports other (Mucous Membranes moist.) Cardiovascular: Cardiovascular: Denies dyspnea Respiratory: Respiratory: Denies pain on inspiration and Denies dyspnea Musculoskeletal: Musculoskeletal: Reports other (No calf swelling or edema) Integumentary/Breasts: Skin/Breast: Reports system reviewed and no additional complaints, except as docu Exam Const: General: cooperative, no acute distress, alert and awake Orientation/consciousness: oriented x3 HENMT: Mouth: Yes moist mucous membranes Neck: Neck: normal visual inspection Chest: Chest palpation & inspection: normal inspection of the chest Resp: Effort & Inspection: normal respiratory effort Auscultation: clear to auscultation bilaterally Cardio: Jugular venous distension: no JVD Rate: regular rate Rhythm: regular rhythm GI: Inspection: other ( Dressing intact over lower midline wound w/o significant through drainage) GI Palp: Yes abdominal tenderness ( Mild, near the incision site.) Auscultation: normal bowel sounds Neuro: General: oriented x3 and moves all extremities Speech: normal speech Extrem: General: normal exam except as noted Psych: Mental Status: mental status grossly normal Speech and movement: speech and movement normal Affect: normal affect Thought content: Yes normal Objective Data Vital Signs Vital Signs: Vital Signs - 24 hr 04/07/19 22:00 04/08/19 02:00 04/08/19 06:00 Temperature 36.7 C 36.6 C 36.5 C Pulse Rate 75 58 L 66 Respiratory Rate 16 18 16 Blood Pressure 107/51 L 97/56 L 106/59 L Pulse Oximetry 98 96 98 04/08/19 14:52 Temperature 36.6 C Pulse Rate 62 Respiratory Rate 20 Blood Pressure 116/62 Pulse Oximetry 99 Intake/Output Intake/Output: Intake & Output 04/05/19 04/06/19 04/07/19 04/08/19 23:59 23:59 23:59 23:59 Intake Total 6027 2116 4081 3945 Output Total 450 2110 3110 Balance 5577 2116 1971 835 Meds/Results Medications: Active Medications Generic Name Dose Route Start Last Admin Trade Name Freq PRN Reason Stop Dose Admin Acetaminophen 500 mg 04/07/19 11:37 Tylenol Tablet PO Q6H PRN Mild Pain (1-3) or Fever Hydrocodone Bitart/Acetaminophen 1 tab 04/07/19 11:37 [place] 5-325 Mg PO Q4H PRN Pain Rated 4-6 Hydrocodone Bitart/Acetaminophen 1 tab 04/07/19 11:37 04/08/19 12:35 [place] 10-325 Mg PO 1 tab Q4H PRN Administration Pain Rated 7-10 Clonazepam 1 mg 04/08/19 18:22 Klonopin Tablet PO Q12HR PRN Anxiety Enoxaparin Sodium 40 mg 04/03/19 09:00 04/08/19 07:50 Lovenox SUB-Q 40 mg DAILY KENDRA Administration Famotidine 20 mg 04/07/19 21:00 04/08/19 07:50 Pepcid Iv IV PUSH 20 mg Q12HR KENDRA Administration Piperacillin/Tazobactam/Dextrose 3.375 gm in 50 mls @ 100 mls/hr 04/03/19 00:00 04/08/19 18:20 Zosyn 3.375 Gm/D5w 50ml Pm IVPB Infused Q6HR KENDRA
[2019-04-08 21:53] VITALS: BP 121/75; PULSE 62; RESP 18; TEMP 37.1; O2SAT 100
[2019-04-08] MEDS: MORPHINE SULFATE 4 MG/ML INJ IV PUSH (22:57)
[2019-04-09] MEDS: ONDANSETRON INJ 4 MG/2 ML VIAL IV PUSH (00:15)
[2019-04-09 00:39] VITALS: BP 164/83; PULSE 81; RESP 20; TEMP 37.4; O2SAT 99
[2019-04-09] MEDS: NALOXONE HCL 0.4 MG/ML VIAL 0.1 MG IV PUSH (00:41)
--- NOTE | 2019-04-09 03:58 | PC.NURSE ---
After the initial assessment, the pt stated he was having break through pain. It had not been an hour since he last received pain medicine so I stated I would come back and check on him to see if he needed more pain medication. At approximately 2130 I went back to check on the pt and he was in the bathroom. The pt called and asked for more pain medications at approximately 2200. I went to assess the pt at approximately 2215 and he was in the bathroom again. I went back to see the pt again and he stated his pain was the worst at a 10 and he couldn't stand it. I administered morphine 4mg at 2257. I slowly pushed it and followed it up with a flush. I then stated I would be back to reassess his pain and start his antibiotics in an hour. At approximately midnight, the pt stated he did not feel right and he was shaking and felt nauseous. I administered Zofran at 0015 and stayed with the pt to further monitor. After about 10-15minutes the pt still felt unrelieved so I had the nurse aid get his vitals. They were stable, all within normal limits. She documented them. The pt still was still complaining of shakes. The pt had Narcan available so I educated him about the uses and effects of the drug. After scanning the pt the drug vial would not scan. I called pharmacy and had them send me a new vial that was able to scan. At 0041 the pt received Narcan. I continued to monitor the pt. He stated he was feeling a little better but was still shaking and complaining. I called the surgical exchange at 0055 and left a message for the program production specialist doctor. Dr. Lloyd called me back at 0106 and increased the continuous fluid rate, wanted the scheduled midnight ibuprofen given, and pt's pain to be reassessed every 2-3 hours. If pain medication was needed try [place] first and try to avoid morphine. I went back to the pt's room at approximately 0115 and let him know what the doctor had ordered. He was ok with the added fluid but did not want any more pain medications. He refused the ibuprofen several times. He stated his pain was now at a 2. He also stated he went into the bathroom and pushed out all the air in his stomach and all the pain went away. I will continue to monitor the pt.
[2019-04-09] MEDS: IBUPROFEN IV 800 MG/200 ML 800 MG/200 ML BAG 400 MG IVPB ×3 (05:02→17:56)
[2019-04-09 05:42] LABS: Basophils Percent Auto 0.3 % (0.2-1.2); Eosinophils Absolute Auto 0.5 K/mm3 (0-0.3); Eosinophils Percent Auto 3.7 % (0-4.4); Hematocrit 30.7 % (42.0-52.0); Hemoglobin 10.5 g/dL (14.0-18.0); Immature Granulocyte Absolute 0.06 K/mm3 (0.00-0.031); Immature Granulocyte Percent A 0.4 % (0-0.5); Lymphocytes Absolute Auto 2.37 K/mm3 (0.9-3.2); Lymphocytes Percent Auto 17.3 % (18.3-44.2); Mean Corpuscular HGB Conc 34.2 g/dl (32-36); Mean Corpuscular Hemoglobin 32.4 pg (26-34); Mean Corpuscular Volume 94.8 fl (80-100); Mean Platelet Volume 11.1 fl (7.4-10.4); Monocytes Absolute Auto 1.3 K/mm3 (0.1-0.6); Monocytes Percent Auto 9.8 % (2.6-8.5); Neutrophils Absolute Auto 9.4 K/mm3 (1.3-6.7); Neutrophils Percent Auto 68.5 % (45.5-73.1); Platelet Count Result 308 k/mm3 (150-375); Red Blood Count 3.24 M/mm3 (4.6-6.20); Red Cell Distribution Width 11.9 % (11.5-14.5); White Blood Count 13.7 K/mm3 (4.5-10.0)
--- NOTE | 2019-04-09 06:56 | PC.NURSE ---
Pt still in pain. Pt refuses PRN pain medications. Pt received scheduled ibuprofen
--- NOTE | 2019-04-09 08:07 | PM.PNGS ---
Progress Note: A&P Assessment and Plan (1) Diverticulitis of large intestine with abscess: Onset Date: ~03/2019 Qualifiers: Diverticulitis bleeding: without bleeding Qualified Code(s): K57.20 - Diverticulitis of large intestine with perforation and abscess without bleeding Code(s): K57.20 - Diverticulitis of large intestine with perforation and abscess without bleeding Status: Acute Assessment and Plan: doing well postop day 2. Increase activity. Start daily dressing changes. Advance diet to solid food. Recheck labs again in the morning. Hopefully home in 1-2 more days. Continue IV antibiotics for now. Tellez catheter will have to stay in for 7 days postop. Subjective Subjective Date/Time Seen: 04/09/19 08:07 Post Op day: 2 Patient reports: no new complaints, still having pain and bowel movement Exam GI: Inspection: non-distended and incision ( healing well. Serous fluid in ZABRINA drain) GI Palp: Yes soft and Yes tender Auscultation: normal bowel sounds Objective Data Vital Signs Vital Signs: Vital Signs - 24 hr 04/08/19 14:52 04/08/19 21:53 04/09/19 00:39 Temperature 36.6 C 37.1 C 37.4 C Pulse Rate 62 62 81 Respiratory Rate 20 18 20 Blood Pressure 116/62 121/75 164/83 H Pulse Oximetry 99 100 99 Intake/Output Intake/Output: Intake & Output 04/06/19 04/07/19 04/08/19 04/09/19 23:59 23:59 23:59 23:59 Intake Total 2116 4081 4585 1699 Output Total 2110 3150 1970 Balance 2116 1971 1435 -723 Meds/Results Medications: Active Medications Generic Name Dose Route Start Last Admin Trade Name Freq PRN Reason Stop Dose Admin Acetaminophen 500 mg 04/07/19 11:37 Tylenol Tablet PO Q6H PRN Mild Pain (1-3) or Fever Hydrocodone Bitart/Acetaminophen 1 tab 04/07/19 11:37 [place] 5-325 Mg PO Q4H PRN Pain Rated 4-6 Hydrocodone Bitart/Acetaminophen 1 tab 04/07/19 11:37 04/08/19 12:35 [place] 10-325 Mg PO 1 tab Q4H PRN Administration Pain Rated 7-10 Clonazepam 1 mg 04/08/19 18:22 Klonopin Tablet PO Q12HR PRN Anxiety Enoxaparin Sodium 40 mg 04/03/19 09:00 04/08/19 07:50 Lovenox SUB-Q 40 mg DAILY KENDRA Administration Famotidine 20 mg 04/07/19 21:00 04/08/19 20:15 Pepcid Iv IV PUSH 20 mg Q12HR KENDRA Administration Piperacillin/Tazobactam/Dextrose 3.375 gm in 50 mls @ 100 mls/hr 04/03/19 00:00 04/09/19 07:19 Zosyn 3.375 Gm/D5w 50ml Pm IVPB Infused Q6HR KENDRA Infusion Ibuprofen 800 mg in 200 mls @ 400 mls/hr 04/02/19 18:00 04/09/19 05:32 Caldolor 800 Mg/200 Ml IVPB Infused Q6HR KENDRA Infusion Lactated Ringer's 1,000 mls @ 100 mls/hr 04/07/19 11:37 04/09/19 07:18 Lr - Lactated Ringers Iv IV CONT 100 mls/hr .Q10H KENDRA Infusion Morphine Sulfate 2 mg 04/07/19 11:37 04/07/19 15:46 Morphine Sulfate Inj IV PUSH 2 mg Q2H PRN Administration Pain Rated 4-6 Morphine Sulfate 4 mg 04/07/19 11:37 04/08/19 22:57 Morphine Sulfate Inj IV PUSH 4 mg Q2H PRN Administration Pain Rated 7-10 Naloxone HCl 0.1 mg 04/07/19 11:37 04/09/19 00:41 Narcan IV PUSH 0.1 mg Q2M PRN Administration Opiate Reversal Ondansetron HCl 4 mg 04/07/19 11:37 04/09/19 00:15 Zofran Inj IV PUSH 4 mg Q4H PRN Administration Nausea And Vomiting Radiology Results: ITS Impressions Abdomen/Pelvis CT 04/06/19 08:43 IMPRESSION: 1. Sigmoid diverticulitis with fistula and slightly worsened abscess involving the bladder wall and slightly worsened abscess posterior superior to the bladder. Labs Labs: Laboratory Results - last 24 hr 04/09/19 04:58 WBC 13.7 H RBC 3.24 L Hgb 10.5 L Hct 30.7 L MCV 94.8 MCH 32.4 MCHC 34.2 RDW 11.9 Plt Count 308 MPV 11.1 H Immature Gran % (Auto) 0.4 Neut % (Auto) 68.5 Lymph % (Auto) 17.3 L [place] % (Auto) 9.8 H Eos % (Auto) 3.7 Baso % (Auto) 0.3 Lymph # (Auto) 2.37 [place] # (Auto) 1.3 H
[2019-04-09] MEDS: ENOXAPARIN 40 MG/0.4 ML SYRINGE SUB-Q (08:51)
[2019-04-09] MEDS: FAMOTIDINE 20 MG/2 ML VIAL IV PUSH ×2 (08:51→21:23)
[2019-04-09 10:00] VITALS: BP 121/75; PULSE 53; RESP 18; TEMP 37.5; O2SAT 98
[2019-04-09] MEDS: LACTATED RINGERS 1,000 ML 100 ML IV CONT (11:54)
[2019-04-09 14:00] VITALS: BP 104/51; PULSE 97; RESP 16; TEMP 37.3; O2SAT 99
[2019-04-09 20:38] VITALS: BP 123/76; PULSE 46; RESP 16; TEMP 37.2; O2SAT 99
[2019-04-09 23:45] VITALS: TEMP 37.2
[2019-04-10] MEDS: IBUPROFEN IV 800 MG/200 ML 800 MG/200 ML BAG 300 MG IVPB (00:06)
[2019-04-10] MEDS: IBUPROFEN IV 800 MG/200 ML 800 MG/200 ML BAG 250 MG IVPB (05:26)
[2019-04-10 05:49] VITALS: BP 99/56; PULSE 46; RESP 18; TEMP 37.2; O2SAT 98
[2019-04-10 06:04] LABS: Hematocrit 30.6 % (42.0-52.0); Hemoglobin 10.5 g/dL (14.0-18.0); Mean Corpuscular HGB Conc 34.3 g/dl (32-36); Mean Corpuscular Volume 93.3 fl (80-100); Mean Platelet Volume 10.9 fl (7.4-10.4); Platelet Count Result 296 k/mm3 (150-375); Red Blood Count 3.28 M/mm3 (4.6-6.20)
[2019-04-10 06:16] LABS: Blood Urea Nitrogen 3 mg/dL (9-20); Calcium 8.2 mg/dL (8.4-10.2); Carbon Dioxide 32 mmol/L (22-30); Chloride 99 mmol/L (98-107); Estimated CRCL calculation 92 ml/min; Estimated Glomerular Filt Rate > 60; Glucose 86 mg/dL (75-110); Potassium 3.4 mmol/L (3.4-5.0); Sodium 137 mmol/L (137-145)
[2019-04-10] MEDS: ENOXAPARIN 40 MG/0.4 ML SYRINGE SUB-Q (08:55)
--- NOTE | 2019-04-10 09:01 | PM.DS ---
DS: Diagnosis Admitting Diagnosis Admitting Diagnosis: Diverticulitis of large intestine with perforation and abscess without bleeding Discharge Diagnosis (1) Diverticulitis of large intestine with abscess: Onset Date: ~03/2019 Qualifiers: Diverticulitis bleeding: without bleeding Qualified Code(s): K57.20 - Diverticulitis of large intestine with perforation and abscess without bleeding Code(s): K57.20 - Diverticulitis of large intestine with perforation and abscess without bleeding Status: Acute Assessment and Plan: CT scan was suspicious for colovesical fistula. Sigmoid colon inflammation an abscess was plastered to the wall of the urinary bladder. No colovesical fistula was demonstrated during surgery. Patient nonetheless will have Tellez catheter for a week following the surgery and a cystogram before the catheter is removed. He will also be on antibiotic therapy for 1 week postop. DS: Summary Time Spent with Patient Time attestation: Total time spent providing and/or coordinating discharge services: The patient is a 43-year-old man who was admitted on 1226 with recurrent acute diverticulitis. He was actually scheduled for surgery this week for elective sigmoidectomy. However he called the office complaining of dysuria. A CBC was done that showed is white blood cell count was increased to 15,400. CT scan showed 2 pelvic abscesses associated with the urinary bladder and strong suggestion of colovesical fistula. Urinalysis however was negative for signs of colovesical fistula. The patient was admitted and started on IV antibiotics with bowel rest. He improved but on 04/06/2019, a repeat CT scan showed actually increased size of the 2 abscesses. After discussion, we made the decision to go ahead with the sigmoidectomy. He had open sigmoidectomy on 04/07/2019. Two pelvic abscesses were found and drained. No colovesical fistula was demonstrated during the surgery. Primary anastomosis with colorectal end-to-end anastomosis was performed. Postoperatively the patient did well. He was started on clear liquids and advanced to solid food. His ZABRINA drain was removed on postop day 3. He was comfortable on oral analgesics on 04/10/2019. His white blood cell count had decreased to the normal range. He was trained to use a leg bag with the urinary catheter. He was discharged in good condition on postop day 3., 04/10/2019. Exam GI: Inspection: non-distended and incision (Wound healing well.) GI Palp: Yes soft and Yes tender Auscultation: normal bowel sounds DS: Data Data Completed and Pending Completed studies during hospitalization: Pending at discharge 04/07/19 09:38 Surgical [PTH] Routine Labs on day of discharge: Labs from last 24 hours 04/10/19 04/10/19 05:07 05:07 WBC 9.0 RBC 3.28 L Hgb 10.5 L Hct 30.6 L MCV 93.3 MCH 32.0 MCHC 34.3 RDW 12.0 Plt Count 296 MPV 10.9 H Sodium 137 Potassium 3.4 Chloride 99 Carbon Dioxide 32 H BUN 3 L Creatinine 0.80 Estim Creat Clear Calc 92 Estimated GFR > 60 Glucose 86 Calcium 8.2 L Discharge Plan Discharge Attending physician on discharge: Mir Hirsch Discharging Clinician: Mir Hirsch Anticipated Discharge Date/Time: 04/10/19 12:07 Patient Disposition: Home, Self-Care Activity: may shower and no straining Diet: as tolerated and regular Wound Care Instructions: remove dressing to shower and change dressing daily Discharge Instructions: Ambulate 3-4 x per day and as tolerated. No lifting over 15-20lbs. May bathe or shower. Stairs are OK. May drive a car in 3 days. Remove any dressings before shower and replace after. Replace dressing to abdominal wound and drain site daily for 3 days. Made. Dressing changes and leave open on Saturday04/14/2019 Use leg bag with urinary catheter Patient Instructions: Antibiotic Form, How to Stop Smoking (DC)
== END 2019-04-10 11:53 | disposition home or self-care (01) | DRG 231 ==
LOC: ANHED 15:51 → ANH2MED 16:10
PROVIDERS: Surgery; Admitting Provider Surgery; Emergency Provider Emergency Medicine; PCP Registered Nurse; Visit Provider Surgery
PROC: 0DTN0ZZ Resection of Sigmoid Colon, Open Approach (ICD-10-PCS; CPT 44143; principal; 2019-04-07 07:30)
DX: K57.20 Diverticulitis of large intestine with perforation and abscess without bleeding (principal)
CPT/HCPCS: 36415; 74177; 80048; 80053; 81001; 82378; 83690; 85025; 85027; 86850; 86900; 86901; 88307; 96365; 96367; 99285; A9270; C1729; J0131; J0690; J1100; J1170; J1200; J1650; J1741; J2250; J2270; J2310; J2405; J2543; J2704; J2710; J3010; J7120; Q9967

== ENCOUNTER 2023-12-26 01:37 | Emergency (ER) | payer OTHER, SELFPAY ==
--- NOTE | ~2023-12-26 | CT_ITS ---
CT of the Abdomen and Pelvis: Indication: Epigastric pain Technique: 2.5 mm axial scans were obtained through the abdomen and pelvis following intravenous adm inistration of 100 cc of Omnipaque 350. Dose reduction technique was used on this scan by utilizing a utomated exposure control and iterative reconstruction technique. The dose-length product (DLP) was 2 63.37 mGy-cm. Findings: Scans through the lung bases are unremarkable. The liver, spleen, pancreas, adrenals and kidneys are within normal limits. There is mild gallbladder wall thickening with possible subtle sludge and/or stones present. No evidence of aortic aneurysm. No lymphadenopathy. No bowel obstruction or bowel wall thickening. There is no evidence to suggest acute appendicitis. Images through the pelvis were performed. Urinary bladder unremarkable. No pelvic mass seen. No ascit es. Impression: Gallbladder wall thickening with suspected sludge or small stones. Consider acute cholecystitis. Cons ider ultrasound and/or HIDA scan for further evaluation, as indicated. Reviewed, dictated and finalized at [facility]. Impression: Gallbladder wall thickening with suspected sludge or small stones. Consider acu te cholecystitis. Consider ultrasound and/or HIDA scan for further evaluation, as indicated.
--- NOTE | ~2023-12-26 | XR_ITS ---
Portable chest x-ray Comparison: 11/23/2014 Clinical History: Shortness of breath Findings: Lungs are clear, without focal consolidation or pleural effusion. Cardiomediastinal silho uette is stable. Bones and soft tissues are unremarkable. Impression: Normal chest. Reviewed, dictated and finalized at location . Impression: Normal chest.
[2023-12-26 01:44] VITALS: PULSE 56; RESP 16; TEMP 36.8; O2SAT 100
--- NOTE | 2023-12-26 01:57 | ED.ABDPAIN ---
HPI - Abdominal Pain General Chief Complaint: Abdominal Pain Stated Complaint: abdominal pain Time Seen by Provider: 12/26/23 01:38 History of Present Illness HPI narrative: 48-year-old male presenting to the emergency department for evaluation for epigastric pain that does radiate into his back. Patient states he has had this pain multiple times over the last few months. Patient states his current pain started last night at approximately 10:00 p.m.. Patient has no prior history cholecystitis. Patient states he has had surgery on his gallbladder previously. Patient denies any prior history of pancreatitis. Patient denies any history of SD. Related Data Home Medications Medication Instructions Recorded Confirmed clonazepam 1 mg tablet 1 mg PO BID 02/16/19 06/08/19 Allergies Allergy/AdvReac Type Severity Reaction Status Date / Time No Known Allergies Allergy Verified 06/08/19 13:17 Review of Systems Review of Systems: All systems reviewed & are unremarkable except as noted in HPI and below PMFSH Past Medical History Medical History (Updated 12/26/23 @ 05:09 by Bebeto Espino MD) Depression Diverticulitis Surgical History Surgical History H/O colonoscopy 08/25/[address] Raines showing diverticulosis with no evidence of bleeding and grade II internal hemorrhoids. Family History Family History Other Tuberculosis Other Acute myocardial infarction Diabetes mellitus Social History Social History Social History: The patient lives at home with his and four children. He normally works for a [employer] but has recently been off work due to the recurrent episodes of diverticulitis. He has not worked for at least the past month. He has a history of smoking daily but reportedly quit about 2 days ago. Denies any alcohol or drug use. Years smoked: 19 Smoking status: Former smoker Smoking end date: 03/31/19 Alcohol intake: former Substance use: never Substance use type: does not use Living arrangements: with family Occupation/Education: occupation Gender identity (if verbalized by the patient): Male Spiritual care concerns: No Agree to blood products: Yes Exam Narrative: APPEARANCE: Well appearing, no pain, no distress, well-nourished. HEAD: normocephalic, atraumatic. EYES: PERRLA/EOMI, conjunctivae clear. NOSE: Normal no drainage EARS:TMS clear with good light reflex. THROAT: Pharynx clear, no exudate. NECK: Supple. No adenopathy, no masses. RESPIRATORY: Airway patent, respirations nonlabored. Clear to auscultation bilaterally, no rales, rhonchi, wheezing. CARDIOVASCULAR: Regular rate and rhythm without murmurs rubs or gallops. ABDOMINAL: Soft, epigastric tenderness to palpation, nondistended, normal bowel sounds MUSCULOSKELETAL: Moves all extremities. Strength/ROM intact, No edema, No calf tenderness. NEURO: Alert. Cranial nerves II through XII intact. Good gait. Good coordination SKIN: Warm, dry. Normal Color Course Course Emergency Course: Patient did feel improved with treatment was discharged to home. Vital Signs Vital signs: Vital Signs Temperature 98.3 F 12/26/23 01:44 Pulse Rate 56 L 12/26/23 01:44 Respiratory Rate 16 12/26/23 01:44 Pulse Oximetry 100 12/26/23 01:44 Oxygen Delivery Room Air 12/26/23 01:44 Temperature 98 F 12/26/23 05:23 Pulse Rate 45 L 12/26/23 05:23 Respiratory Rate 14 12/26/23 05:23 Blood Pressure 123/72 12/26/23 05:23 Pulse Oximetry 100 12/26/23 05:23 Oxygen Delivery Room Air 12/26/23 01:44 MDM - Abdominal Pain MDM Narrative Medical decision making narrative: 48-year-old male presenting to the emergency department for evaluation for epigastric pain and tenderness. Patient is afebrile but does have a leukocyto
[2023-12-26] MEDS: BELLADONNA ALK/PHENOB ELIX 10 ML, MAG HYDROX/ALUMINUM HYD/SIMETH 30 ML, LIDOCAINE HCL 2... PO (01:59)
[2023-12-26] MEDS: PANTOPRAZOLE SODIUM IV 40 MG VIAL IV PUSH (01:59)
[2023-12-26 02:00] LABS: Basophils Absolute Auto 0.1 K/mm3 (0.0-0.1); Basophils Percent Auto 0.6 % (0.2-1.2); Eosinophils Absolute Auto 0.6 K/mm3 (0-0.3); Eosinophils Percent Auto 5.6 % (0-4.4); Hematocrit 39.6 % (42.0-52.0); Hemoglobin 14.3 g/dL (14.0-18.0); Immature Granulocyte Absolute 0.06 K/mm3 (0.00-0.031); Immature Granulocyte Percent A 0.5 % (0-0.5); Lymphocytes Absolute Auto 3.62 K/mm3 (0.9-3.2); Lymphocytes Percent Auto 32.6 % (18.3-44.2); Mean Corpuscular HGB Conc 36.1 g/dl (32-36); Mean Corpuscular Hemoglobin 35.4 pg (26-34); Mean Platelet Volume 11.4 fl (7.4-10.4); Monocytes Absolute Auto 0.9 K/mm3 (0.1-0.6); Monocytes Percent Auto 8.2 % (2.6-8.5); Neutrophils Absolute Auto 5.8 K/mm3 (1.3-6.7); Neutrophils Percent Auto 52.5 % (45.5-73.1); Platelet Count Result 248 k/mm3 (150-375); Red Blood Count 4.04 M/mm3 (4.6-6.20); Red Cell Distribution Width 12.6 % (11.5-14.5); White Blood Count 11.1 K/mm3 (4.5-10.0)
[2023-12-26 02:05] LABS: Add Urine Microscopic? YES; Appearance Urine Clear (Clear); Bacteria Urine None Seen /hpf; Bilirubin Urine Negative (Negative); Blood Urine Negative (Negative); Color Urine Yellow (Yellow); Glucose Urine UA Negative (Negative); Ketones Urine Negative (Negative); Leukocyte Esterase Ur Negative LEU/UL (Negative); Nitrate Urine Negative (Negative); Non Pathogenic Casts 0-2; Protein Urine Trace mg/dL (Negative); RBC Urine 0-2 /hpf (0-2); Specific Grav Ur 1.014 (1.001-1.035); Squamous Epithelial Cell Urine None Seen /hpf (Few); WBC Urine 0-5 /hpf (0-3); pH Urine 8.5 (5.0-9.0)
--- NOTE | 2023-12-26 02:08 | ECG_ITS ---
Test Date: 2023-12-26 02:27:20 Measurements Intervals [place] Rate: 44 P: 60 [place]: 187 QRS: 71 QRSD: 98 T: 40 QT: 428 QTc: 369 Interpretive Statements SINUS BRADYCARDIA ST ELEVATION IN DIFFUSE LEADS, PROBABLY EARLY REPOLARIZATION BASELINE ARTIFACT- I, II, III, AVR, AVL, AVF, V1-V6 ABNORMAL ECG No previous ECG available for comparison Electronically Signed On 12-26-2023 05:47:20 CDT by Roberto Husain D.O.
[2023-12-26 02:10] LABS: Alanine Aminotransferase 14 U/L (6-50); Albumin Level 4.4 g/dL (3.5-5.1); Alkaline Phosphatase 52 U/L (38-126); Anion Gap 9 mmol/L (4-12); Aspartate Amino Transferase 24 U/L (17-59); Blood Urea Nitrogen 8 mg/dL (9-20); Calcium 8.6 mg/dL (8.4-10.2); Carbon Dioxide 30 mmol/L (22-30); Chloride 100 mmol/L (98-107); Estimated CRCL calculation 69 ml/min; Estimated Glomerular Filt Rate > 60; Glucose 96 mg/dL (65-110); Lipase 137 U/L (23-300); Potassium 3.5 mmol/L (3.4-5.0); Sodium 139 mmol/L (137-145)
[2023-12-26 02:22] VITALS: BP 127/80; PULSE 43; RESP 16; O2SAT 99
[2023-12-26 02:34] VITALS: PULSE 42
[2023-12-26 02:44] LABS: Troponin I < 0.012 ng/mL (0.000-0.034)
--- NOTE | 2023-12-26 03:33 | PC.NURSE ---
Patient's HR is dropping to 35bpm. Patient states his pain is better. Patient does state that it feels hard to breathe. Patient currently sating at 99% on room air and lung sounds are clear bi-laterally. Notified EDP Dr. Espino who VRBO the patient to walk with a pulse oximeter monitor on. While ambulating the patient had a heart rate of 66bpm and an SPO2% of 97%. Notified EDP Dr. Espino.
--- NOTE | 2023-12-26 04:33 | ECG_ITS ---
Test Date: 2023-12-26 04:46:00 Measurements Intervals [place] Rate: 43 P: 56 [place]: 190 QRS: 64 QRSD: 100 T: 37 QT: 424 QTc: 362 Interpretive Statements SINUS BRADYCARDIA ST ELEVATION IN DIFFUSE LEADS, PROBABLY EARLY REPOLARIZATION ABNORMAL ECG Compared to ECG 12/26/2023 02:27:20 No significant changes Electronically Signed On 12-26-2023 05:49:42 CDT by Roberto Husain D.O.
[2023-12-26 04:38] VITALS: BP 125/75; PULSE 47; RESP 13; TEMP 36.6; O2SAT 100
[2023-12-26] MEDS: HYDROmorphone HCL INJ (*CRX) 1 MG/ML SYR 0.5 MG IV PUSH (04:42)
[2023-12-26 05:04] LABS: Troponin I < 0.012 ng/mL (0.000-0.034)
[2023-12-26 05:05] LABS: Influenza A QL RT-PCR Negative (Negative); Influenza B QL RT-PCR Negative (Negative); RSV RNA, RT-PCR Negative (Negative); SARS-CoV-2 RNA PCR Negative (Negative)
[2023-12-26 05:23] VITALS: BP 123/72; PULSE 45; RESP 14; TEMP 36.6; O2SAT 100
== END 2023-12-26 05:24 | disposition home or self-care (01) ==
PROVIDERS: Emergency Provider Emergency Medicine; PCP Registered Nurse
DX: R10.13 Epigastric pain (principal); Z20.822 Contact with and (suspected) exposure to COVID-19; Z87.891 Personal history of nicotine dependence; R93.2 Abnormal findings on diagnostic imaging of liver and biliary tract; R00.1 Bradycardia, unspecified
CPT/HCPCS: 36415; 71045; 74177; 80053; 81001; 83690; 84484; 85025; 87637; 93005; 96374; 96375; 99284; A9270; J1170; J2470; Q9967

== ENCOUNTER 2024-10-08 05:15 | Observation (INO) | payer OTHER, SELFPAY ==
[2024-10-08] VITALS (12 sets, daily range): BP systolic 103–139; BP diastolic 57–88; PULSE 35–55; RESP 10–20; TEMP 36.2–37; O2SAT 98–100; BMI 20.5
--- NOTE | ~2024-10-08 | XR_ITS ---
Portable chest x-ray Comparison: 12/26/2023 Clinical History: Chest pain Findings: Lungs are clear, without focal consolidation or pleural effusion. Cardiomediastinal silho uette is stable. Bones and soft tissues are unremarkable. Impression: Normal chest. Reviewed, dictated and finalized at [facility]. Impression: Normal chest.
--- NOTE | ~2024-10-08 | CT_ITS ---
Clinical Indication: Chest pain, abdominal pain CT Scan of the Chest, Abdomen, and Pelvis with Contrast: Technique: Contiguous sections were acquired throughout the chest, abdomen, and pelvis after intraven ous administration of 100 cc of Omnipaque 350. Dose reduction technique was used on this scan by manuel collins automated exposure control and iterative reconstruction technique. The dose-length product (DL P) was 471.80 mGy-cm. Comparison: 12/26/2023 Findings: There is no evidence of any significant mediastinal, hilar or axillary lymphadenopathy. The mediastin al soft tissues appear normal. No pulmonary embolus. No aortic aneurysm or dissection. There is no evidence of pleural or pericardial effusion. The lungs are clear. No pulmonary nodules or infiltrates are noted. The liver, spleen, pancreas, adrenals and kidneys are within normal limits. There is probable mild ga llbladder wall thickening with suspected subtle gallstone. No evidence of aortic aneurysm. No lympha denopathy. No bowel obstruction or bowel wall thickening. There is no evidence to suggest acute appendicitis. Urinary bladder is unremarkable. No pelvic mass seen. No ascites. Impression: Mild gallbladder wall thickening with suspected gallstone. Consider acute cholecystitis. Consider HID A scan and/or ultrasound for further evaluation. No other significant findings. Reviewed, dictated and finalized at location . Impression: Mild gallbladder wall thickening with suspected gallstone. Consider acute moody cystitis. Consider HIDA scan and/or ultrasound for further evaluation. No other significant findings.
--- NOTE | ~2024-10-08 | US_ITS ---
EXAM: ABDOMEN ULTRASOUND HISTORY: Epigastric pain, possible cholecystitis on CT COMPARISON: Reference was made with a CTA of the chest dated 10/08/2024 (approximately 1 hour earlier) FINDINGS: LIVER: The liver is unremarkable in echogenicity and size. The portal vein is patent, demonstrating hepatopedal flow. GALLBLADDER: Multiple stones are identified within the gallbladder, which is otherwise unremarkable. The stones are bulky and mobile. No gallbladder wall thickening or pericholecystic fluid. BILE DUCTS: Common bile duct measures 5.6mm. PANCREAS: Limited evaluation of the pancreas secondary to overlying bowel gas IMPRESSION: Cholelithiasis, without ultrasound evidence of cholecystitis. Reviewed, dictated and finalized at location []
--- NOTE | ~2024-10-08 | NM_ITS ---
EXAMINATION: NM hepatobiliary w pharm DATE: 10/08/2024 15:43 INDICATION: Epigastric pain. Cholelithiasis. COMPARISON: None. TECHNIQUE: 5.2 mCi Tc-99m mebrofenin (Choletec) was administered intravenously. Scintigraphic images of the abdomen were obtained for one hour. 2 mg morphine was administered by slow intravenous infusi on, and imaging was continued for 30 minutes. Gallbladder ejection fraction was calculated by the rich hnologist. FINDINGS: There is normal clearance of radiotracer from the blood pool. There is homogeneous tracer uptake by t he liver. Activity progresses to the common bile duct and small bowel by 15 minutes with progressive accumulation of bowel activity over the following 45 minutes. There is accumulation of a significant amount of activity inferior and slightly lateral to the common bile duct on the 30 minutes of imagin g following morphine administration of is unclear whether this within the second portion of the duode num and/or within the gallbladder. There is reflux of activity into the fundus of the stomach. IMPRESSION: Prominent accumulation of activity in the right upper quadrant which could be either within the gallb ladder and/or the second portion of the duodenum and which remains equivocal for acute cholecystitis. Reviewed, dictated and finalized at location [facility]. IMPRESSION: Prominent accumulation of activity in the right upper quadrant which could be e ither within the gallbladder and/or the second portion of the duodenum and whic h remains equivocal for acute cholecystitis.
--- NOTE | 2024-10-08 05:42 | ECG_ITS ---
Test Date: 2024-10-08 05:45:26 Measurements Intervals [place] Rate: 42 P: 35 MA: 167 QRS: -15 QRSD: 93 T: 5 QT: 435 QTc: 366 Interpretive Statements SINUS BRADYCARDIA VOLTAGE CRITERIA FOR LVH [MEETS CRITERIA IN ONE OF: R(aVL), S(V1), R(V5), R(V5/V6)+S(V1)] Compared to ECG 12/26/2023 04:46:00 Left ventricular hypertrophy now present ST (T wave) deviation no longer present Early repolarization no longer present Electronically Signed On 10-08-2024 16:41:29 CDT by Vanesa Walters
[2024-10-08 05:58] LABS: Hematocrit 45.3 % (42.0-52.0); Hemoglobin 15.3 g/dL (14.0-18.0); Immature Granulocyte Percent A 0.3 % (0-0.5); Lymphocytes Absolute Auto 3.41 K/mm3 (0.9-3.2); Mean Corpuscular HGB Conc 33.8 g/dl (32-36); Mean Corpuscular Hemoglobin 33.2 pg (26-34); Mean Corpuscular Volume 98.3 fl (80-100); Nucleated Red Blood Cells Absolute Auto 0.000 K/mm3 (0.0-0.012); Nucleated Red Blood Cells Perc 0.0 % (0.0-0.2); Platelet Count Result 250 k/mm3 (150-375); Red Blood Count 4.61 M/mm3 (4.6-6.20); White Blood Count 11.2 K/mm3 (4.5-10.0)
[2024-10-08 06:08] LABS: Alanine Aminotransferase 16 U/L (6-50); Albumin Level 4.4 g/dL (3.5-5.1); Alkaline Phosphatase 43 U/L (38-126); Anion Gap 8 mmol/L (4-12); Aspartate Amino Transferase 24 U/L (17-59); Bilirubin,Total 0.5 mg/dL (0.2-1.3); Blood Urea Nitrogen 5 mg/dL (9-20); Calcium 9.1 mg/dL (8.4-10.2); Carbon Dioxide 30 mmol/L (22-30); Chloride 103 mmol/L (98-107); Estimated CRCL calculation 71 ml/min; Estimated Glomerular Filt Rate > 60; Glucose 112 mg/dL (65-110); Lipase 173 U/L (23-300); Potassium 4.4 mmol/L (3.4-5.0); Sodium 141 mmol/L (137-145); Total Protein 7.8 g/dL (6.3-8.2)
[2024-10-08] MEDS: ASPIRIN 81 MG CHEWABLE TABLET 324 MG PO (06:09)
[2024-10-08 06:12] LABS: INR 0.9; Partial Thromboplastin Time 30.9 Seconds (22.3-36.8); Prothrombin Time 12.8 Seconds (11.1-14.7)
[2024-10-08 06:20] LABS: Troponin I < 0.012 ng/mL (0.000-0.034)
--- NOTE | 2024-10-08 07:26 | PC.NURSE ---
Assumed care of pt. Pt complaining of chest pain and SOB. Pain increases with deep breaths
[2024-10-08] MEDS: MORPHINE SULFATE (*CRX) 4 MG/ML INJ IV PUSH (07:46)
[2024-10-08] MEDS: PANTOPRAZOLE SODIUM IV 40 MG VIAL IV PUSH ×2 (07:58→20:49)
--- NOTE | 2024-10-08 08:44 | ECG_ITS ---
Test Date: 2024-10-08 08:49:01 Measurements Intervals [place] Rate: 40 P: 57 [place]: 182 QRS: 70 QRSD: 101 T: 45 QT: 431 QTc: 355 Interpretive Statements SINUS BRADYCARDIA MINIMAL VOLTAGE CRITERIA FOR LVH, CONSIDER NORMAL VARIANT [MEETS CRITERIA IN ONE OF: R(aVL), S(V1), R(V5), R(V5/V6)+S(V1)] ST ELEVATION, PROBABLY EARLY REPOLARIZATION [ST ELEVATION WITH NORMALLY INFLECTED T-WAVE] Compared to ECG 10/08/2024 05:45:26 Electronically Signed On 10-08-2024 16:49:46 CDT by Vanesa Walters
--- NOTE | 2024-10-08 09:15 | ED_ITS ---
HPI - General Adult General Chief complaint: Chest Pain Stated complaint: abd pain Time Seen by Provider: 10/08/24 07:14 History of Present Illness HPI narrative: Patient 48-year-old gentleman who presents emergency department with chief complaint epigastric and chest pain. The patient states for the last 2 days he has had pain in the midsternal area reports that goes down to the upper epigastric area patient states the pain radiates to his back reports that it is pressure but also has a sharp type pain as well the patient is [place]ik-speaking only reports that he had a similar episode a little over year ago and was told that it was gastritis and was started on omeprazole Related Data Home Medications ?Medication ?Instructions ?Recorded ?Confirmed ?Last Taken ?Type clonazepam 1 mg tablet 1 mg PO BID 02/16/19 06/08/19 04/02/19 08:00 History Allergies Allergy/AdvReac Type Severity Reaction Status Date / Time No Known Allergies Allergy Verified 06/08/19 13:17 Review of Systems 2 Review of Systems: A 10 system review of systems was completed on the patient and is negative except for what is stated in the HPI. Nursing and ancillary documentation was reviewed. [facility] Past Medical History Medical History (Updated 10/08/24 @ 10:40 by Jayson Ruelas MD) Diverticulitis Depression Surgical History Surgical History H/O colonoscopy 08/25/[address] Raines showing diverticulosis with no evidence of bleeding and grade II internal hemorrhoids. Family History Family History Other Tuberculosis Other Acute myocardial infarction Diabetes mellitus Social History Social History Social History: The patient lives at home with his and four children. He normally works for a [employer] company, but has recently been off work due to the recurrent episodes of diverticulitis. He has not worked for at least the past month. He has a history of smoking daily but reportedly quit about 2 days ago. Denies any alcohol or drug use. Years smoked: 19 Smoking status: Former smoker Smoking end date: 03/31/19 Alcohol intake: former Substance use: never Substance use type: does not use Living arrangements: with family Occupation/Education: occupation Gender identity (if verbalized by the patient): Male Spiritual care concerns: No Agree to blood products: Yes Exam 2 Narrative: GENERAL: Well-appearing, well-nourished, and in no acute distress. HEAD: Normocephalic, atraumatic. EYES: PERRLA and EOMI. ENT: Nares clear, no rhinorrhea or epistaxis. Mucous membranes moist. NECK: Supple. CHEST: Clear to auscultation. No respiratory distress. HEART: Regular rate and rhythm. No murmur heard. Normal peripheral pulses. ABDOMEN: Soft, tenderness to palpation in the epigastric region, nondistended, normal active bowel sounds. EXTREMITIES: Normal range of motion. No edema. SKIN: Warm, dry, no rash. NEURO: No focal deficits. Alert and oriented x3. PSYCH: Normal mood and affect. Course Vital Signs Vital signs: Vital Signs Temperature 37.0 C 10/08/24 05:36 Pulse Rate 45 L 10/08/24 05:36 Respiratory Rate 16 10/08/24 05:36 Blood Pressure 139/84 10/08/24 05:36 Pulse Oximetry 99 10/08/24 05:36 Oxygen Delivery Room Air 10/08/24 05:36 Temperature 37.0 C 10/08/24 05:36 Pulse Rate 55 L 10/08/24 10:25 Respiratory Rate 20 10/08/24 10:25 Blood Pressure 124/68 10/08/24 10:25 Pulse Oximetry 100 10/08/24 10:25 Oxygen Delivery Room Air 10/08/24 05:36 Medical Decision Making [facility] Narrative Medical decision making narrative: Differential diagnosis includes ACS, pancreatitis, diverticulitis, colitis, pulmonary embolism, and cholecystitis CTA chest showed no evidence of PE but abdomen pelvis did showMild gallbladder wall thickening with suspected gallstone. Consider acute cholecystitis. Consider HIDA scan and/or ultrasound for further evaluation. An liver enzymes are within normal limits white blood cell count was 11.2 Gallbladder ultrasound has been ordered EKG showed sinus bradycardia with no ST elevations or ST depressions. The patient has had episodes where his heart rate has decreased down into the 30s Initial troponin was negative repeat troponin is currently pending Vital Signs Vital Signs: Vital Signs Temperature 37.0 C 10/08/24 05:36 Pulse Rate 45 L 10/08/24 05:36 Respiratory Rate 16 10/08/24 05:36 Blood Pressure 139/84 10/08/24 05:36 Pulse Oximetry 99 10/08/24 05:36 Oxygen Delivery Room Air 10/08/24 05:36 Temperature 37.0 C 10/08/24 05:36 Pulse Rate 55 L 10/08/24 10:25 Respiratory Rate 20 10/08/24 10:25 Blood Pressure 124/68 10/08/24 10:25 Pulse Oximetry 100 10/08/24 10:25 Oxygen Delivery Room Air 10/08/24 05:36 Lab Data 10/08/24 05:50 10/08/24 05:50 Labs: Lab Results 10/08/24 10/08/24 Range/Units 05:50 08:51 WBC 11.2 H (4.5-10.0) K/mm3 RBC 4.61 (4.6-6.20) M/mm3 Hgb 15.3 (14.0-18.0) g/dL Hct 45.3 (42.0-52.0) % MCV 98.3 (80-100) fl MCH 33.2 (26-34) pg MCHC 33.8 (32-36) g/dl RDW 12.1 (11.5-14.5) % Plt Count 250 (150-375) k/mm3 MPV 11.4 H (7.4-10.4) fl Immature Gran % (Auto) 0.3 (0-0.5) % Neut % (Auto) 54.7 (45.5-73.1) % Lymph % (Auto) 30.5 (18.3-44.2) % [place] % (Auto) 8.5 (2.6-8.5) % Eos % (Auto) 5.2 H (0-4.4) % Baso % (Auto) 0.8 (0.2-1.2) % Lymph # (Auto) 3.41 H (0.9-3.2) K/mm3 [place] # (Auto) 1.0 H (0.1-0.6) K/mm3 Eos # (Auto) 0.6 H (0-0.3) K/mm3 Baso # (Auto) 0.1 (0.0-0.1) K/mm3 Abs Immat Gran (auto) 0.03 (0.00-0.031) K/mm3 Absolute Neuts (auto) 6.1 (1.3-6.7) K/mm3 Absolute Nucleated RBC 0.000 (0.0-0.012) K/mm3 Nucleated RBC % 0.0 (0.0-0.2) % PT 12.8 (11.1-14.7) Seconds INR 0.9 APTT 30.9 (22.3-36.8) Seconds Sodium 141 (137-145) mmol/L Potassium 4.4 (3.4-5.0) mmol/L Chloride 103 (98-107) mmol/L Carbon Dioxide 30 (22-30) mmol/L Anion Gap 8 (4-12) mmol/L BUN 5 L (9-20) mg/dL Creatinine 1.27 (0.7-1.3) mg/dL Estim Creat Clear Calc 71 ml/min Estimated GFR > 60 (59 - ) Glucose 112 H (65-110) mg/dL Calcium 9.1 (8.4-10.2) mg/dL Total Bilirubin 0.5 (0.2-1.3) mg/dL AST 24 (17-59) U/L ALT 16 (6-50) U/L Alkaline Phosphatase 43 (38-126) U/L Troponin I < 0.012 < 0.012 (0.000-0.034) ng/mL Total Protein 7.8 (6.3-8.2) g/dL Albumin 4.4 (3.5-5.1) g/dL Lipase 173 (23-300) U/L Discharge Plan Discharge Clinical Impression: Atypical chest pain, Bradycardia, Cholelithiasis Patient Disposition: Still a Patient Condition: Stable Instructions: Antibiotic Form Patient Language: Tajik Prescriptions: No Action clonazepam 1 mg tablet 1 mg PO BID omeprazole 20 mg capsule,delayed release(DR/EC) 20 mg PO DAILY 14 Days Qty: 14 0RF albuterol sulfate 90 mcg/actuation HFA aerosol inhaler 1 inh inhalation QID PRN (Reason: shortness of breath or wheezing) Qty: 6.7 0RF Follow-up/Referrals: Ann,MELLISA Baker [Primary Care Provider] - Time of Disposition: 10:40
[2024-10-08 09:16] LABS: Troponin I < 0.012 ng/mL (0.000-0.034)
--- NOTE | 2024-10-08 11:20 | ECG_ITS ---
Test Date: 2024-10-08 12:56:49 Measurements Intervals [place] Rate: 47 P: 65 DC: 183 QRS: 64 QRSD: 88 T: 30 QT: 405 QTc: 359 Interpretive Statements SINUS BRADYCARDIA MINIMAL VOLTAGE CRITERIA FOR LVH, CONSIDER NORMAL VARIANT [MEETS CRITERIA IN ONE OF: R(aVL), S(V1), R(V5), R(V5/V6)+S(V1)] EARLY REPOLARIZATION [ST ELEVATION WITH NORMALLY INFLECTED T WAVE] WARNING: DATA QUALITY MAY AFFECT INTERPRETATION Compared to ECG 10/08/2024 08:49:01 Electronically Signed On 10-08-2024 16:52:15 CDT by Vanesa Walters
--- NOTE | 2024-10-08 12:12 | P.HP_ITS ---
H&P: HPI History of Present Illness Date/Time: 10/08/24 12:12 Chief Complaint: Chest pain Narrative: 48yo male with GERD, anxiety and depression here for chest pain. Patient was seen in the emergency room in December 2023 for epigastric pain that radiated into his back. Patient had a GI cocktail with improvement of his pain. It was suspected he had gastritis and was treated with Prilosec. Should be mentioned that EKG at that time showed he had sinus bradycardia and ST changes. Patient has been compliant with his omeprazole 10 mg b.i.d.. He developed nausea, vomiting and diarrhea about 1 week ago but then improvement of those symptoms. About 3 days ago he noted epigastric and lower chest pain. This has worsened over the past 3 days. It radiates to his back. It is worse in the morning and at night. It is also worse when he is laying down. Pain is not associated with food and does not get better or worse with food. There is no pleuritic component. The pain feels heavy and has heat. There is no radiation of the pain to the arm or to the neck. He does have some mild nausea over the past 3 days. Pain does not worsen with activity. He works in [employer]. Pain does sometimes take his breath away. He states this pain feels very similar to the pain he had in the ED visit in December. He also states his heart is racing with increased severity of the pain at night and in the morning. There has been no weight loss. No diarrhea or constipation. No melena or hematochezia. No acid taste or sour taste in the mouth. No fever or chills. He has not had an EGD. Because of the pain, he present to the emergency room for evaluation. In the emergency room, patient was hemodynamically stable with exception as heart rate was low at 45 and did drop to 38 once. EKG shows sinus bradycardia with voltage criteria for LVH. Patient does not have diabetes, hypertension or hyperlipidemia. White count was 11K with a mild eosinophilia at 600 cells. PT and PTT were normal. CMP was essentially normal. Troponin negative x2. Chest x-ray was clear. CT of the chest, abdomen and pelvis with IV contrast showed no PE. No cardiopulmonary disease. Had mild gallbladder wall thickening with suspected gallstone. Upper quadrant ultrasound shows cholelithiasis without evidence of cholecystitis. He was treated with aspirin, morphine and Protonix. He was admitted for further care. Hx obtained through an aerial photograph interpreter. Review of Systems Review of Systems: All systems reviewed & are unremarkable except as noted in HPI and below PMFSH Past Medical History Medical History Diverticulitis of large intestine with abscess (~03/2019) s/p sigmoid colon resection with colorectal anastomosis, drainage pelvic abscess Mar 2019. Anxiety with panic attacks GERD (gastroesophageal reflux disease) Diverticulitis Depression Surgical History Surgical History H/O colonoscopy 08/25/[address] Raines showing diverticulosis with no evidence of bleeding and grade II internal hemorrhoids. Family History Family History Other Tuberculosis Other Acute myocardial infarction Diabetes mellitus Social History Social History (Updated 10/08/24 @ 12:28 by Jayson Duncan MD) Social History: The patient lives at home with his and five children. He works in [employer]. Smokes 3/4ppd x 23yrs. Denies any alcohol or drug use. Code status - full Surrogate decision maker - Years smoked: 23 Smoking status: Current every day smoker Alcohol intake: former Substance use: never Substance use type: does not use Living arrangements: with family Occupation/Education: occupation Gender identity (if verbalized by the patient): Male Spiritual care concerns: No Agree to blood products: Yes Meds Home Medications and Allergies Home Medications ?Medication ?Instructions ?Recorded ?Confirmed ?Type omeprazole 20 mg capsule,delayed 20 mg PO DAILY 14 days #14 caps 12/26/23 Rx release acetaminophen 325 mg tablet 650 mg PO Q6H PRN pain 10/08/24 10/08/24 History (Tylenol) omeprazole 10 mg capsule,delayed 10 mg PO BID 10/08/24 10/08/24 History release Allergies Allergy/AdvReac Type Severity Reaction Status Date / Time No Known Allergies Allergy Verified 06/08/19 13:17 Vital Signs Vital Signs - 24 hr 10/08/24 05:36 10/08/24 08:02 10/08/24 10:25 Temperature 98.6 F Pulse Rate 45 L 50 L 55 L Respiratory Rate 16 20 20 Blood Pressure 139/84 131/88 124/68 Pulse Oximetry 99 100 100 Oxygen Delivery Room Air 10/08/24 11:00 10/08/24 11:30 Temperature Pulse Rate 38 L 43 L Respiratory Rate 11 L 14 Blood Pressure 124/79 134/85 Pulse Oximetry 98 100 Oxygen Delivery Exam Narrative: AF 97.2 132/82 50 14 100% ra Gen - well appearing male in no acute respiratory distress who is nontoxic- appearing lying semi recumbent in bed HEENT - normocephalic. Atraumatic. Pupils equal round and reactive. Extraocular motions intact. Sclera clear and anicteric. Nares patent. No oral lesions. Moist mucous membranes. Tongue was midline. Palate rolan symmetrically. No facial asymmetry. Neck - neck was supple. No dominant adenopathy, thyromegaly or masses. 2+ carotid upstrokes Chest - lungs are clear to auscultation bilaterally. No wheezes or crackles. CV - bradycardia, regular. S1-S2. No murmurs gallops or rubs. Abd - abdomen was soft. Nondistended. Positive bowel sounds. No organomegaly or masses. Mild epigastric pain to palpation Ext - no clubbing, cyanosis or edema. 2+ DP pulses bilaterally. Multiple hyperpigmented toenails Neuro - patient is alert and oriented x4. Strength is 5/5 in both upper and lower extremities. Cranial nerves 2-12 are intact. Speech is clear. Psych - normal mood and affect. Patient is pleasant and cooperative. Skin - warm and dry. No rashes noted. H&P: Results Labs Labs: Short CBC 10/08/24 Range/Units 05:50 WBC 11.2 H (4.5-10.0) K/mm3 Hgb 15.3 (14.0-18.0) g/dL Hct 45.3 (42.0-52.0) % Plt Count 250 (150-375) k/mm3 BMP 10/08/24 05:50 Sodium 141 Potassium 4.4 Chloride 103 Carbon Dioxide 30 BUN 5 L Creatinine 1.27 Glucose 112 H Calcium 9.1 Cardiac Enzymes 10/08/24 10/08/24 Range/Units 05:50 08:51 Troponin I < 0.012 < 0.012 (0.000-0.034) ng/mL Liver Function 07/03/25 Range/Units 05:50 Total Bilirubin 0.5 (0.2-1.3) mg/dL AST 24 (17-59) U/L ALT 16 (6-50) U/L Alkaline Phosphatase 43 (38-126) U/L Albumin 4.4 (3.5-5.1) g/dL Assessment and Plan Assessment and plan (1) Atypical chest pain: Code(s): R07.89 - Other chest pain Status: Acute Assessment and Plan: Patient presents with atypical chest pain. 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 Pain feels very similar to prior ER visit. He has minimal risk factors for coronary disease. He does have bradycardia noted but this appears to be chronic. His symptoms are not typical of acute cholecystitis and gallbladder ultrasound does not reveal any evidence of cholecystitis. No obvious findings on CT scan otherwise. No red flag symptoms to suggest this is something different than gastritis or pep tic ulcer disease. will continue proton pump inhibitor. HIDA scan is ordered and will follow up on the results. Trend troponins. Cardiology has been consulted. Continue aspirin until rule out complete. Check echocardiogram. (2) Bradycardia: Code(s): R00.1 - Bradycardia, unspecified Status: Acute Assessment and Plan: Patient with sinus bradycardia present on admission. Patient does not have any cardiac symptoms when he is exerting himself when he is working. Review of the chart shows that this sinus bradycardia was present last year at his last ER visit. EKG from 2019 also showed sinus bradycardia. This is most likely chronic and asymptomatic. He does not have a heart block to suggest Lyme disease. Will check echocardiogram. Cardiology consulted. Will place on telemetry and monitor his heart rate when he is active to see if he has appropriate response. (3) GERD (gastroesophageal reflux disease): Code(s): K21.9 - Gastro-esophageal reflux disease without esophagitis Status: Acute Assessment and Plan: As above. Continue PPI. Encouraged tobacco cessation. acid reflux precautions. Patient to see GI as an outpatient for possible EGD. (4) Cholelithiasis: Code(s): K80.20 - Calculus of gallbladder without cholecystitis without obstruction Status: Acute Assessment and Plan: CT of the abdomen showed mild gallbladder wall thickening with suspected gallstone. Right upper quadrant ultrasound showed cholelithiasis without cholecystitis. Suspect his symptoms are more likely related to gastritis or peptic ulcer disease. Follow-up on HIDA scan results. Continue PPI therapy. Check H pyloriI. (5) Tobacco abuse: Code(s): Z72.0 - Tobacco use Status: Acute Assessment and Plan: Patient was educated about the benefits of smoking cessation. Plan DVT Prophylaxis - SCD Code status - Full
--- NOTE | 2024-10-08 12:47 | ADMGEN ---
This patient, Phong Neff, was admitted to IMU Room 213-01. Patient/family oriented to hospital policies and general routines including ID bracelet, bed and alarms, visiting hours, pain management, procedures, bathroom and other care routines, personal items, smoking policy, room service/diet, and visiting hours. Information on how to activate the Rapid Response Team has been discussed. Patient/Family are encouraged to report perceived risks to care and to ask questions if they do not understand what they are told or what they should do.
[2024-10-08 13:26] LABS: Troponin I 0.015 ng/mL (0.000-0.034)
[2024-10-08] MEDS: MORPHINE SULFATE (*CRX) 2 MG/ML INJ IV PUSH (15:08)
[2024-10-08 20:21] LABS: Cholesterol 199 mg/dL (0-200); HDL Direct 28 mg/dL; Triglycerides 345 mg/dL (<150)
[2024-10-09] VITALS (10 sets, daily range): BP systolic 100–115; BP diastolic 53–63; PULSE 38–48; RESP 15–16; TEMP 36.4–36.8; O2SAT 98–100
[2024-10-09] MEDS: PANTOPRAZOLE SODIUM IV 40 MG VIAL IV PUSH (11:35)
--- NOTE | 2024-10-09 12:35 | P.CONCA_ITS ---
Assessment and Plan Assessment and plan (1) Bradycardia: Code(s): R00.1 - Bradycardia, unspecified Status: Acute Plan Chest pain with negative cardiac enzymes and no dynamic EKG changes unlikely to be related to cardiac origin Epigastric discomfort likely related to GI complaint Asymptomatic sinus bradycardia Plan Event monitor on discharge Consider nuclear stress test can be performed as outpatient Follow-up in the cardiology clinic History of Present Illness History of Present Illness Consult date/time: 10/09/24 12:35 Reason For Visit: Chest Pain/Cholelithiasis/Bradycardia Narrative: 48-year-old male patient presents to the hospital with epigastric discomfort. Epigastric discomfort was moderate in severity radiating to the back. Patient has similar symptoms in the past was improved with PPI but this time it did not respond. Overload state symptoms has been worse. Patient mentioned his low heart rate in the past but he has never had dizziness or syncope Review of Systems 2 Review of Systems: All systems reviewed & are unremarkable except as noted in HPI and below PMFSH Past Medical History Medical History Diverticulitis of large intestine with abscess (~03/2019) s/p sigmoid colon resection with colorectal anastomosis, drainage pelvic abscess Mar 2019. Anxiety with panic attacks GERD (gastroesophageal reflux disease) Diverticulitis Depression Surgical History Surgical History H/O colonoscopy 08/25/[address] Raines showing diverticulosis with no evidence of bleeding and grade II internal hemorrhoids. Family History Family History Other Tuberculosis Other Acute myocardial infarction Diabetes mellitus Social History Social History (Updated 10/08/24 @ 12:28 by Jayson Duncan MD) Social History: The patient lives at home with his and five children. He works in [employer]. Smokes 3/4ppd x 23yrs. Denies any alcohol or drug use. Code status - full Surrogate decision maker - Smoking packs per day: 0.75 Smoking cigarettes per day: 15.0 Years smoked: 25 Smoking pack-years: 18.75 Smoking status: Current every day smoker Tobacco type: cigarettes Alcohol intake: never Substance use: never Substance use type: does not use Do You Feel Safe in your Home?: Yes Lack of Transportation: No Lack of Food: Sometimes True Current Housing: I Have Housing Concerned About Future Housing: YES Difficulty Paying Gas/Electric Bills: No Difficulty Paying for Meds: No Currently Unemployed: No Education: Grade School Difficulty w/ Childcare or Family Care: No Living arrangements: with family Occupation/Education: occupation Gender identity (if verbalized by the patient): Male Spiritual care concerns: No Agree to blood products: Yes Meds Home Medications and Allergies Home Medications ?Medication ?Instructions ?Recorded ?Confirmed ?Type omeprazole 20 mg capsule,delayed 20 mg PO DAILY 14 days #14 caps 12/26/23 10/08/24 Rx release acetaminophen 325 mg tablet 650 mg PO Q6H PRN pain 10/08/24 10/08/24 History (Tylenol) omeprazole 10 mg capsule,delayed 10 mg PO BID 10/08/24 10/08/24 History release Allergies Allergy/AdvReac Type Severity Reaction Status Date / Time No Known Allergies Allergy Verified 06/08/19 13:17 Vital Signs Vital Signs - 24 hr 10/08/24 12:47 10/08/24 14:00 10/08/24 16:00 Temperature 36.4 C L 36.5 C Pulse Rate 46 L 47 L 45 L Respiratory Rate 16 12 Blood Pressure 137/77 118/68 Pulse Oximetry 100 100 Oxygen Delivery 10/08/24 16:00 10/08/24 18:00 10/08/24 20:00 Temperature 36.6 C Pulse Rate 44 L 44 L 35 L Respiratory Rate 15 Blood Pressure 103/57 L Pulse Oximetry 99 Oxygen Delivery 10/08/24 20:00 10/08/24 20:00 10/08/24 22:00 Temperature Pulse Rate 35 L 43 L Respiratory Rate Blood Pressure Pulse Oximetry Oxygen Delivery Room Air 10/08/24 23:54 10/09/24 00:00 10/09/24 00:00 Temperature 36.6 C Pulse Rate 40 L 48 L Respiratory Rate 15 Blood Pressure 103/55 L Pulse Oximetry 100 Oxygen Delivery Room Air 10/09/24 02:00 10/09/24 04:00 10/09/24 04:00 Temperature 36.5 C Pulse Rate 38 L 41 L Respiratory Rate 16 Blood Pressure 103/55 L Pulse Oximetry 99 Oxygen Delivery Room Air 10/09/24 04:00 10/09/24 06:00 10/09/24 08:00 Temperature 36.4 C Pulse Rate 43 L 41 L 42 L Respiratory Rate 16 Blood Pressure 100/53 L Pulse Oximetry 98 Oxygen Delivery 10/09/24 11:57 Temperature 36.8 C Pulse Rate 42 L Respiratory Rate 16 Blood Pressure 115/63 Pulse Oximetry 99 Oxygen Delivery Exam 2 Const: General: comfortable and no acute distress Other: Able to lie flat HENMT: Face/Nose/Sinus: Normal nares present and no epistaxis Mouth: Yes moist mucous membranes Eyes: Sclera: sclerae normal Pupils: Equal, round and reactive pupils present Neck: Neck: supple and no JVD Carotids: no bruits Resp: Auscultation: clear to auscultation bilaterally and lung sounds not diminished Other: No chest wall tenderness Cardio: Rate: regular rate Rhythm: regular rhythm Heart sounds: no gallops, no murmurs and no rubs GI: GI Palp: Yes Soft to palpation and No Tenderness to palpation present (GI) Auscultation: normal bowel sounds Skin: General skin exam: normal color, rashes and/or lesions noted and no erythema Other: Warm Neuro: Cranial nerves: Yes Equal, round and reactive pupils present Speech: normal speech Other: No obvious focal deficit or facial asymmetry Extrem: General: no edema Other: Normal capillary refills Intact distal pulses. Results Labs and Meds 10/08/24 05:50 10/08/24 05:50 Lab results: Cardiac Enzymes 10/08/24 Range/Units 12:52 Troponin I 0.015 D (0.000-0.034) ng/mL Lipids 10/08/24 Range/Units 12:49 Triglycerides 345 H (<150) mg/dL Cholesterol 199 (0-200) mg/dL Intake and Output 10/08/24 10/09/24 10/09/24 23:59 07:59 15:59 Intake Total 600 400 360 Balance 600 400 360 Intake: Oral 600 400 360 Other: # Unmeasured Voids 2 Patient Weight 10/09/24 23:59 Weight 68.2 kg
--- NOTE | 2024-10-09 13:55 | P.CONS_ITS ---
Assessment and Plan Assessment and plan (1) Cholelithiasis: Code(s): K80.20 - Calculus of gallbladder without cholecystitis without obstruction Status: Acute Assessment and Plan: Patient has cholelithiasis documented on abdominal ultrasound. No acute or chronic cholecystitis changes of the gallbladder were seen on the ultrasound. (2) Abdominal pain, epigastric: Code(s): R10.13 - Epigastric pain Status: Inactive Assessment and Plan: The epigastric abdominal pain could be due to symptomatic cholelithiasis and possible gallbladder dysfunction. However workup for other etiologies such as peptic ulcer disease or gastritis or H.pylori infection should be further investigated. Workup with GI consultation either as inpatient or outpatient follow-up is recommended. A GI workup is negative then consideration for elective laparoscopic cholecystectomy can be entertained. Would have the patient follow-up see me in the office after is been evaluated by GI. Patient may be discharged from the hospital at Dr. Duncan's discretion. (3) Bradycardia: Code(s): R00.1 - Bradycardia, unspecified Status: Acute Assessment and Plan: Patient seen by Cardiology inpatient. The plan on placing a event recorder on the patient follow him up as an outpatient. HPI Data of Consult Date/Time: 10/09/24 13:55 Requesting Physician: Mayank Duncan MD Primary Care Provider: Samuel Juarez, ABRASIVE COATING MACHINE OPERATOR Consult Narrative Reason for consult: Epigastric abdominal pain, gallstones Narrative: Phong Neff is a 48 year old male admitted to the hospital with complaints of recurrent epigastric abdominal pain. He had similar type pain a few months ago and was given a GI cocktail not relieved his pain. He has not had GI workup in the past. He did have a laparotomy and a sigmoid resection for diverticulitis with abscess by Dr. Hirsch 6 for 7 years ago. His white blood count [id number] when he was admitted to the hospital. Liver enzymes were normal. CT scan abdomen pelvis was done showing possible gallstones in the gallbladder was some mild gallbladder wall thickening. This was that fall with a abdominal ultrasound which showed multiple gallstones but without evidence of any pericholecystic fluid or gallbladder wall thickening. No evidence of acute cholecystitis was seen on the ultrasound. HIDA scan was then performed today which showed equivocal uptake of contrast into the gallbladder. There was contrast refluxing into the stomach and in the common bile duct. Upon questioning the patient today he did state he had pain with the 2nd injection of the HIDA scan today. He has been tolerating low-fat diet without difficulty. He states that he does not have any issues with eating in terms of nausea or pain. The consultation was performed with the aid of the online guzzler builder. Review of Systems 2 Review of Systems: The remainder of the review of systems to include constitutional, HEENT, cardiovascular, respiratory, GI, , integumentary, musculoskeletal, endocrine, immunologic, hematologic, psychiatric, and neurologic are all negative except for which is mentioned above in the HPI. [facility] Past Medical History Medical History Diverticulitis of large intestine with abscess (~03/2019) s/p sigmoid colon resection with colorectal anastomosis, drainage pelvic abscess Mar 2019. Anxiety with panic attacks GERD (gastroesophageal reflux disease) Diverticulitis Depression Surgical History Surgical History H/O colonoscopy 08/25/[address] Raines showing diverticulosis with no evidence of bleeding and grade II internal hemorrhoids. Family History Family History Other Tuberculosis Other Acute myocardial infarction Diabetes mellitus Social History Social History Social History: The patient lives at home with his and five children. He works in [employer]. Smokes 3/4ppd x 23yrs. Denies any alcohol or drug use. Code status - full Surrogate decision maker - Smoking packs per day: 0.75 Smoking cigarettes per day: 15.0 Years smoked: 25 Smoking pack-years: 18.75 Smoking status: Current every day smoker Tobacco type: cigarettes Alcohol intake: never Substance use: never Substance use type: does not use Do You Feel Safe in your Home?: Yes Lack of Transportation: No Lack of Food: Sometimes True Current Housing: I Have Housing Concerned About Future Housing: YES Difficulty Paying Gas/Electric Bills: No Difficulty Paying for Meds: No Currently Unemployed: No Education: Grade School Difficulty w/ Childcare or Family Care: No Living arrangements: with family Occupation/Education: occupation Gender identity (if verbalized by the patient): Male Spiritual care concerns: No Agree to blood products: Yes Meds Home Medications and Allergies Home Medications ?Medication ?Instructions ?Recorded ?Confirmed ?Type omeprazole 20 mg capsule,delayed 20 mg PO DAILY 14 days #14 caps 12/26/23 10/08/24 Rx release acetaminophen 325 mg tablet 650 mg PO Q6H PRN pain 10/08/24 10/08/24 History (Tylenol) omeprazole 10 mg capsule,delayed 10 mg PO BID 10/08/24 10/08/24 History release Allergies Allergy/AdvReac Type Severity Reaction Status Date / Time No Known Allergies Allergy Verified 06/08/19 13:17 Vital Signs Vital Signs - 24 hr 10/08/24 14:00 10/08/24 16:00 10/08/24 16:00 Temperature 36.5 C Pulse Rate 47 L 45 L 44 L Respiratory Rate 12 Blood Pressure 118/68 Pulse Oximetry 100 Oxygen Delivery 10/08/24 18:00 10/08/24 20:00 10/08/24 20:00 Temperature 36.6 C Pulse Rate 44 L 35 L Respiratory Rate 15 Blood Pressure 103/57 L Pulse Oximetry 99 Oxygen Delivery Room Air 10/08/24 20:00 10/08/24 22:00 10/08/24 23:54 Temperature Pulse Rate 35 L 43 L Respiratory Rate Blood Pressure Pulse Oximetry Oxygen Delivery Room Air 10/09/24 00:00 10/09/24 00:00 10/09/24 02:00 Temperature 36.6 C Pulse Rate 40 L 48 L 38 L Respiratory Rate 15 Blood Pressure 103/55 L Pulse Oximetry 100 Oxygen Delivery 10/09/24 04:00 10/09/24 04:00 10/09/24 04:00 Temperature 36.5 C Pulse Rate 41 L 43 L Respiratory Rate 16 Blood Pressure 103/55 L Pulse Oximetry 99 Oxygen Delivery Room Air 10/09/24 06:00 10/09/24 08:00 10/09/24 11:57 Temperature 36.4 C 36.8 C Pulse Rate 41 L 42 L 42 L Respiratory Rate 16 16 Blood Pressure 100/53 L 115/63 Pulse Oximetry 98 99 Oxygen Delivery Exam 2 Const: General: comfortable and no acute distress HENMT: Ears: TM's normal bilaterally Face/Nose/Sinus: Normal nares present Mouth: Yes moist mucous membranes Eyes: General: appearance normal, both eyes and all related structures S clera: sclerae normal Pupils: Equal, round and reactive pupils present E OM: EOMs intact bilaterally Neck: Neck: supple and no JVD Resp: Effort & Inspection: normal respiratory effort Auscultation: clear to auscultation bilaterally Cardio: Rate: regular rate Rhythm: regular rhythm GI: Other: Abdomen is soft and nondistended. Has minimal tenderness to palpation epigastric region abdomen. No tenderness to palpation right upper quadrant over the area the gallbladder. He has a midline incision starting just above the umbilicus and extending to the pubic symphysis without evidence of incisional hernia. Skin: General skin exam: normal color and no rashes or lesions noted Neuro: General: gait normal Speech: normal speech Motor exam (neuro): 5 /5 motor strength present throughout Sensory Exam: normal sensation Extrem: General: normal to inspection Psych: Mental Status: mental status grossly normal Affect: normal affect Results Labs 10/08/24 05:50 10/08/24 05:50 Imaging Radiologist's impression: CT Scan Report Signed Patient: Phong Neff : 1975 MR#: [id number] Age: 48 Acct:[id number] Loc: [facility] ADM Date: 10/08/24Attending Dr: Ordering Physician: Mayank Ruelas MD Date of Service: 10/08/24 Procedure(s): CTA chest PE abdomen pel Accession Number(s): [id number] cc: Ann, Samuel MART; Mayank Ruelas MD~ Clinical Indication: Chest pain, abdominal pain CT Scan of the Chest, Abdomen, and Pelvis with Contrast: Technique: Contiguous sections were acquired throughout the chest, abdomen, and pelvis after intravenous administration of 100 cc of Omnipaque 350. Dose reduction technique was used on this scan by utilizing automated exposure control and iterative reconstruction technique. The dose-length product (DLP) was 471.80 mGy-cm. Comparison: 12/26/2023 Findings: There is no evidence of any significant mediastinal, hilar or axillary lymphadenopathy. The mediastinal soft tissues appear normal. No pulmonary embolus. No aortic aneurysm or dissection. There is no evidence of pleural or pericardial effusion. The lungs are clear. No pulmonary nodules or infiltrates are noted. The liver, spleen, pancreas, adrenals and kidneys are within normal limits. There is probable mild gallbladder wall thickening with suspected subtle gallstone. No evidence of aortic aneurysm. No lymphadenopathy. No bowel obstruction or bowel wall thickening. There is no evidence to suggest acute appendicitis. Urinary bladder is unremarkable. No pelvic mass seen. No ascites. Impression: Mild gallbladder wall thickening with suspected gallstone. Consider acute cholecystitis. Consider HIDA scan and/or ultrasound for further evaluation. No other significant findings. Reviewed, dictated and finalized at [facility]. Please be advised this is a medical document. It is intended for [id number] communication. It is written in medical language and may contain unfamiliar abbreviations or verbiage. Medical documents are intended to carry relevant information, facts as evident, and the clinical opinion of the practitioner at the time of the encounter. This report may have been done utilizing a voice recognition system. Attempts have been made to correct errors. However, there may be uncorrected grammatical, spelling, and recognition errors present. The file time of this note does not necessarily represent the time of service. Dictated By: Samson Antonio MD 10/08/24 0759 Signed By: <Electronically signed by Samson Antonio MD in [place]> 10/08/24 0801 Ultrasound Report Signed Patient: Phong Neff : 1975 MR#: [id number] Age: 48 Acct:[id number] Loc: [facility] ADM Date: 10/08/24Attending Dr: Ordering Physician: Mayank Ruelas MD Date of Service: 10/08/24 Procedure(s): US abdomen limited Accession Number(s): [id number] cc: Ann, Samuel MART; Mayank Ruelas MD~ EXAM: ABDOMEN ULTRASOUND HISTORY: Epigastric pain, possible cholecystitis on CT COMPARISON: Reference was made with a CTA of the chest dated 10/08/2024 (approximately 1 hour earlier) FINDINGS: LIVER: The liver is unremarkable in echogenicity and size. The portal vein is patent, demonstrating hepatopedal flow. GALLBLADDER: Multiple stones are identified within the gallbladder, which is otherwise unremarkable. The stones are bulky and mobile. No gallbladder wall thickening or pericholecystic fluid. BILE DUCTS: Common bile duct measures 5.6mm. PANCREAS: Limited evaluation of the pancreas secondary to overlying bowel gas IMPRESSION: Cholelithiasis, without ultrasound evidence of cholecystitis. Reviewed, dictated and finalized at location [] Please be advised this is a medical document. It is intended for vvhm-ay-gokk communication. It is written in medical language and may contain unfamiliar abbreviations or verbiage. Medical documents are intended to carry relevant information, facts as evident, and the clinical opinion of the practitioner at the time of the encounter. This report may have been done utilizing a voice recognition system. Attempts have been made to correct errors. However, there may be uncorrected grammatical, spelling, and recognition errors present. The file time of this note does not necessarily represent the time of service. Dictated By: Cristal Clark MD 10/08/24 0922 Nuclear Medicine Report Signed Patient: Phong Neff : 1975 MR#: [id number] Age: 48 Acct:[id number] Loc: [facility] 213-01 ADM Date: 10/08/24Attending Dr: Jayson Duncan M.D. Ordering Physician: Mayank Ruelas MD Date of Service: 10/08/24 Procedure(s): CT hepatobiliary w pharm Accession Number(s): [id number] cc: Ann, Samuel MART; Mayank Duncan MD; Mayank Ruelas MD~ EXAMINATION: CT hepatobiliary w pharm DATE: 10/08/2024 15:43 INDICATION: Epigastric pain. Cholelithiasis. COMPARISON: None. TECHNIQUE: 5.2 mCi Tc-99m mebrofenin (Choletec) was administered intravenously. Scintigraphic images of the abdomen were obtained for one hour. 2 mg morphine was administered by slow intravenous infusion, and imaging was continued for 30 minutes. Gallbladder ejection fraction was calculated by the technologist. FINDINGS: There is normal clearance of radiotracer from the blood pool. There is homogeneous tracer uptake by the liver. Activity progresses to the common bile duct and small bowel by 15 minutes with progressive accumulation of bowel activity over the following 45 minutes. There is accumulation of a significant amount of activity inferior and slightly lateral to the common bile duct on the 30 minutes of imaging following morphine administration of is unclear whether this within the second portion of the duodenum and/or within the gallbladder. There is reflux of activity into the fundus of the stomach. IMPRESSION: Prominent accumulation of activity in the right upper quadrant which could be either within the gallbladder and/or the second portion of the duodenum and which remains equivocal for acute cholecystitis. Reviewed, dictated and finalized at location B. Please be advised this is a medical document. It is intended for [id number]-cdbf communication. It is written in medical language and may contain unfamiliar abbreviations or verbiage. Medical documents are intended to carry relevant information, facts as evident, and the clinical opinion of the practitioner at the time of the encounter. This report may have been done utilizing a voice recognition system. Attempts have been made to correct errors. However, there may be uncorrected grammatical, spelling, and recognition errors present. The file time of this note does not necessarily represent the time of service. Dictated By: Te Hernandez MD 10/08/24 9468 Signed By: <Electronically signed by Te Hernandez MD in [place]> 10/08/24 4724
--- NOTE | 2024-10-09 14:11 | P.DS_ITS ---
DS: Admitting Diagnosis Discharge Date 10/09/24 Admitting Diagnosis Chest pain DS: Discharge Diagnosis Discharge Diagnosis (1) Atypical chest pain: Code(s): R07.89 - Other chest pain Status: Acute (2) Bradycardia: Code(s): R00.1 - Bradycardia, unspecified Status: Acute (3) GERD (gastroesophageal reflux disease): Code(s): K21.9 - Gastro-esophageal reflux disease without esophagitis Status: Acute (4) Cholelithiasis: Code(s): K80.20 - Calculus of gallbladder without cholecystitis without obstruction Status: Acute (5) Tobacco abuse: Code(s): Z72.0 - Tobacco use Status: Acute DS: Summary Hospital Course Reason for hospitalization: 48yo male with GERD, anxiety and depression here for chest pain. Please see H&P for details. Hospital Course: In the emergency room, patient was hemodynamically stable with exception as heart rate was low at 45 and did drop to 38 once. EKG shows sinus bradycardia with voltage criteria for LVH. Patient does not have diabetes, hypertension or hyperlipidemia. White count was 11K with a mild eosinophilia at 600 cells. PT and PTT were normal. CMP was essentially normal. Chest x-ray was clear. CT of the chest, abdomen and pelvis with IV contrast showed no PE. No cardiopulmonary disease. He had mild gallbladder wall thickening with suspected gallstone. Upper quadrant ultrasound shows cholelithiasis without evidence of cholecystitis. He was treated with aspirin, morphine and Protonix and admitted for further care. Patient presents with atypical chest pain that occurs at night and in the morning but not with exertion. Troponin negative x3. EKG showing bradycardia. Review of the chart shows that this sinus bradycardia was present last year at his last ER visit. EKG from 2019 also showed sinus bradycardia. This is most likely chronic and asymptomatic. He does not have a heart block to suggest Lyme disease. His heart rate does increase when he is active. Cardiology consulted who did not feel that his chest pain was cardiac in origin. They did recommend patient wear an Event Monitor on discharge and to follow-up in the clinic for possible stress test. His symptoms are not typical of acute cholecystitis and HIDA scan ordered showing prominent accumulation of activity in the right upper quadrant which could be either within the gallbladder and/or the second portion of the duodenum and which remains equivocal for acute cholecystitis. General surgery consulted who would like patient evaluated by GI and they would consider cholecystectomy if GI etiology is ruled out. Stool for Hpylori ordered. Stool for O&P also ordered given his trips to [place] and his eosinophilia and his GI sx. No red fla g symptoms to suggest this is something different than gastritis or peptic ulcer disease. He was started on IV Protonix with resolution of his symptoms. Patient was educated about the benefits of smoking cessation. He overall did well and was able to be discharged on 10/09/24. Discharge instruction discussed through an uniforms sales representative. Status at Discharge Cognitive/behavioral status at discharge: stable Time Spent with Patient Time attestation: Total time spent providing and/or coordinating discharge services: 38 minutes Time spent: Greater than 30 minutes Exam Narrative: AF 98.2 115/63 42 16 99% ra Gen - NARD Chest - CTA bilaterally CV - bradycardia, regular. S1-S2. Tele showing sinus bradycardia Abd - soft. NT/ND. Positive bowel sounds. Ext - no pedal edema. Psych - normal mood and affect. Skin - warm and dry. DS: Data Data Completed and Pending Labs on day of discharge: Labs from last 24 hours 10/08/24 12:49 Triglycerides 345 H Cholesterol 199 LDL Cholesterol Direct 114 HDL Direct 28 Discharge Plan Discharge Attending physician on discharge: Jayson Duncan Consulting providers: Vanesa Walters; Guanakito Portillo Discharging Clinician: Jayson Duncan Anticipated Discharge Date/Time: 10/09/24 14:25 Patient Disposition: Home Activity: as tolerated Diet: low fat Discharge Instructions: Stop using all products that contain nicotine or tobacco. Contact your doctor or call 911 and come to the Emergency Room if you have chest pain, worsening abdominal pain or other worrisome symptoms. Avoid NSAIDs (ibuprofen, naproxen, Aleve). Tylenol is safe to take. Follow-up with your primary care provider in 1-2 weeks. Please call for appointment. Patient to follow-up with Dr. Portillo in the general surgery clinic in 2 to 3 weeks after discharge. Follow-up with GI doctor in1-2 weeks. Please call for an appointment. Follow-up with the Distillery Supervisor in 2-3 weeks. Please call for an appointment. Thank you for using [facility] for your health care needs. Patient Instructions: Antibiotic Form Patient Language: Cameroonian Stand Alone Forms: General Discharge Information Follow-up/Referrals: RonnySamuel NP [Primary Care Provider] - Call for Appointment Vanesa Walters MD [Physician] - Call for Appointment Wong Brooks MD [Physician] - Call for Appointment Guanakito Portillo MD [Physician] - (Patient follow-up to see Dr. Portillo in the General surgery Clinic in 2 to 3 weeks after discharge. Patient to call [phone] for an appointment.) Discharge Medications: New pantoprazole 40 mg tablet,delayed release (DR/EC) 40 mg PO BID Qty: 60 1RF Continued acetaminophen [Tylenol] 325 mg tablet 650 mg PO Q6H PRN (Reason: pain) Discontinued omeprazole 20 mg capsule,delayed release(DR/EC) 20 mg PO DAILY 14 Days Qty: 14 0RF omeprazole 10 mg capsule,delayed release(DR/EC) 10 mg PO BID Other Ambulatory Orders: CA cardiac event monitor (Routine) Timeframe: [id number] Location: Determined by Patient Ordered By: Jayson Duncan Date of admission: 10/08/24 10:37 Primary Care Provider: RonnySamuel Admitting Provider: Jayson Duncan Attending physician on admission: Jayson Duncan Condition: Stable Hospitalist MIPS Heart Failure (Exclusion) Patient has history of Heart Transplant or Left Ventricular Assistive Device?: No IF YES, STOP HERE Heart Failure (Qualifier) Patient has current or prior documentation of LVEF less than or equal to 40%, or mod/servere depressed LVSF?: No IF NO, STOP HERE
== END 2024-10-09 17:00 | disposition home or self-care (01) ==
LOC: ANHED 10:40 → ANHIMU 11:56
PROVIDERS: Student in an Organized Health Care Education/Training Program; Admitting Provider Internal Medicine; Emergency Provider Emergency Medicine; PCP Registered Nurse; Visit Provider Internal Medicine
DX: R07.89 Other chest pain (principal); R00.1 Bradycardia, unspecified; K21.9 Gastro-esophageal reflux disease without esophagitis; K80.20 Calculus of gallbladder without cholecystitis without obstruction; F17.200 Nicotine dependence, unspecified, uncomplicated; F41.9 Anxiety disorder, unspecified; F32.A Depression, unspecified; Z79.899 Other long term (current) drug therapy; Z90.49 Acquired absence of other specified parts of digestive tract
CPT/HCPCS: 36415; 71045; 71275; 74177; 76705; 78227; 80053; 80061; 83690; 84484; 85025; 85610; 85730; 93005; 96374; 96375; 96376; 99285; A9270; A9537; G0378; G0379; J2270; J2470; Q9967